=== PATIENT | female | born 1985 | race Caucasian/White ===

== ENCOUNTER 2022-08-28 11:15 | Outpatient (RCR) | payer OTHER, SELFPAY ==
--- NOTE | 2022-06-01 14:14 | PT.OIE ---
Current Diagnoses Urethrocele (06/01/22) Other complications of the puerperium, not elsewhere classified (06/01/22) Visit Care Team Role Provider Type Mary Mann MD Attending Provider Non-Staff Family Provider Primary Care Provider Referring Provider Specialty: Family Practice Address: [facility] [place], [address] Email: Physical Therapy Initial Evaluation PT-OP-A Visit Information Start: 05/29/22 18:13 Freq: Status: Active Protocol: Document 06/01/22 11:25 LRN (Rec: 06/01/22 12:39 LRN [id number]) Out-Patient Physical Therapy Visit Information Visit Information Visit Type Initial Evaluation Visit Start Time 11:25 Visit Stop Time 12:20 Total Visit Minutes 55 Visit Number 1 Evaluation Information Evaluation Date 06/01/22 Precautions Precautions None. PT-OP-B Current Condition Start: 05/29/22 18:13 Freq: Status: Active Protocol: Document 06/01/22 11:25 LRN (Rec: 06/01/22 12:39 LRN [id number]) Current Condition History of Current Condition Onset Date Childbirth of son 03/27/22. Current Complaints Bulge in vagina felt intermittently. History of Current Condition 3-4 wks post- pt reports feeling a bulge in the shower in her vaginal region. Went in for 6th week visit on 05/04, said she didn't see anything on pelvic exam, but with cough that she may have a slight anterior bulge. Got a squatty potty and if constipated has a bulge that she can feel, or when really dehydrated has a feeling of something falling out. Bulge with with cough. Feels a bulge in vagina and between vagina and rectum on the outside. Has stuck her finger in her vagina and has felt her bulge. Notices the heavy feeling and bulge at least 1x/ day. Had constipation during but no bulging and heaviness in vagina. Sometimes feels like a tightness in the urethra or clitoris (someting pulling on it), like when the catheter was removed. Prior Treatments and Tests None Future Testing and Treatments Planned None Developmental History Developmental History First , gave vaginal to a healthy boy (7# 11 ounces) on 03/27/22, boy. Had 1st degree tear anteriorly with no stitches. States the MD thought her tear had healed at her last check up. Has tenderness in the area. Stopped 3 weeks ago. Treatment Goals Patient/Caregiver Goals Pt goals: Return to Crossfit No bulging or heaviness feeling with coughing and when constipated and when walking. 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 Baseline Function- Recreation/Hobbies Crossfit workouts 2-3x/week and yoga 1x/wk. Current Functional Impairments (Reported) Functional Limitations- ADL's Not able to do Crossfit. Feels bulge with coughing and when constipated and when walking. Heavy feeling and bulge at least 1x/day. Functional Limitations- Work/School Return to work is planned after the new year. Functional Limitations- Recreation/ Resumed yoga. Hobbies Personal Factors Other Personal Factors That May Effect Mother of ~2 month old . Therapy/Recovery PT-OP-C Subjective Start: 05/29/22 18:13 Freq: Status: Active Protocol: Document 06/01/22 11:25 LRN (Rec: 06/01/22 12:39 LRN [id number]) Patient Questionnaires Pelvic Pain and Urgency/Frequency Patient Symptom Scale Pelvic Pain Score 4 OP-PT Pain Assessment Pain Assessment Grid Paper Pain Assessment Grid Completed Yes Location Urethra/Clitoris region Pain Location Details Urethra/Clitoris region Intensity 1 Scale Used Numeric (0 - 10) Description Tightness Frequency Intermittent Pain Duration Couple hours or all day. Initially was constant. Occurs 1-2x/week. PT-OP-I Pelvic Floor Start: 05/29/22 18:13 Freq: Status: Active Protocol: Document 06/01/22 11:25 LRN (Rec: 06/01/22 12:39 LRN [id number]) Pelvic Floor Assessment Urine Pelvic Floor Surgery No Urinary Symptoms Falling Out Feeling/Heavy Other Urinary Symptoms NO urinary leakage. Bowel Bowel Surgery No Bowel Symptoms Constipation Other Bowel Symptoms constipated 1x/week. Bowel Movement Frequency daily [place] Stool Chart Comments Bowels range 2-3 and with metamucil stool is type 6. When constipated type Pelvic Clock Pelvic Clock 6-9 Atrophy Pelvic Clock Other Tenderness at Pelvic Clock 6. Prolapse Cystocele Grade 2 Perineal Descent Resting Absent Bearing Present Contraction Ability Voluntary Contraction Moderate Manual Muscle Testing Left 2 Manual Muscle Testing Right 2 Manual Muscle Testing Anterior 2 Manual Muscle Testing Posterior 2 Muscle Endurance (Seconds) 8 Number of Quick Contractions In 10 10 Seconds Comments Pelvic Floor Comments Long Holds: Posterior PF, no lift felt, anteriorly bulge felt but lift noted wth contraction; therefore slightly weaker posterior than anterior PF. Endurance: weakens in contraction after ~ 8 secs. Quick Flicks: Weak on R side (5-6 of PF clock), no sphincter contraction felt in posterior PF. Externally: Tenderness of Perineal node and Superficial and deep transverse perineal ms. Tender at Ischiocavernosus near clitoris towards vagina region. PT-OP-J Posture/Palpation/Skin Start: 05/29/22 18:13 Freq: Status: Active Protocol: Document 06/01/22 11:25 LRN (Rec: 06/01/22 12:39 LRN [id number]) Posture Evaluation Position Standing Head/C-Spine Posture Forward Head L-Spine Posture Increased Lordosis Shoulder Posture (R) Elevated Pelvis Posture Anteriorly Tilted,(R) Iliac Crest Superior,(R) PSIS Inferior Knee Posture (L) Genu Varus,(R) Genu Varus Comments Posture Comments Mild Dowagers hump, straightened upper thoracic spine, belly button shifted R, valgus of elbows, R PSIS is posterior and deep. R Gluteal line is low. Notably developed gluteal and quadriceps muscles bilaterally . PT-OP-K Range of Motion Start: 05/29/22 18:13 Freq: Status: Active Protocol: Document 06/01/22 11:25 LRN (Rec: 06/01/22 12:39 LRN [id number]) Lumbar Spine Range of Motion Lumbar Spine Active Degrees Testing Position Standing Flexion 90 Extension 15 Lateral Flexion Left 10 Lateral Flexion Right 10 ROM Limitations Soft Tissue Tightness Comments Hip Flex: 90 deg's flexion with 50 deg's hip flexion. Hip Ext 15 deg's extension with 15 deg's hip extension. Hip Goniometric Range of Motion Hip Right Passive Testing Position Supine Straight Leg Raise 80 Internal Rotation 40 External Rotation 60 Left Passive Testing Position Supine Straight Leg Raise 75 Internal Rotation 30 External Rotation 60 PT-OP-M Strength Start: 05/29/22 18:13 Freq: Status: Active Protocol: Document 06/01/22 11:25 LRN (Rec: 11/21/22 12:39 LRN [id number]) Trunk Strength Trunk Manual Muscle Testing Core Stabilization Mild loss of core stability with MMT, most with L hip flexand R hip ext. Hip Strength Hip Manual Muscle Testing Right Extension (S1) 4+ Good+ Comments Generally 5/5 except as indicated above. Left Flexion (L2) 4+ Good+ Comments Generally 5/5 except as indicated above. PT-OP-Q Treatments Start: 05/29/22 18:13 Freq: Status: Active Protocol: Document 06/01/22 11:25 LRN (Rec: 06/01/22 12:39 LRN [id number]) Self-Care/Home Management Treatment Education Patient Education Home Exercise Program Other Education Discussed results of evaluation, goals, and plan of care (POC). Pt agreeable to goals and POC. Reviewed HEP: Kegels ex's for Quick Flicks, Long Holds. Pt educated in use of Bladder Diary and I/S in tracking for 1 week. Discussed use of 2 different diaries for tracking of bladder. Activities Self-Care/Home Management Activities I/S pt briefly in Bridging with PF contractions for Quick Flicks and Long Holds. Issued handout for HEP of Kegel ex's. PT-OP-T Assessment and Plan Start: 05/29/22 18:13 Freq: Status: Active Protocol: Document 06/01/22 11:25 LRN (Rec: 06/01/22 12:39 N [id number]) Physical Therapy Assessment Rehab Potential Rehabilitation Potential Excellent Evaluation Complexity Number of Personal Factors/Comorbidities 1-2 Number of Body Systems Impaired 4 or More Clinical Presentation at Evaluation Evolving Impairments Impairments Activity Tolerance,Pain, Posture,ROM,Soft Tissue Mobility,Strength Goals Four Impairment Tenderness at the External PF. Impairment Tenderness at Ischiocavernosus , Perineal node and Superficial/deep transverse perineal ms. Short Term Goal (STG) Elimate tenderness at the Ischiocavernosus region. STG Duration 07/17/21 Plastic Block Boiler Reliner Goal (LTG) Elimnate tenderness at the Perineal node and Superficial/ deep transverse perineal ms. LTG Duration 08/21/22 Three Impairment Decreased ability to ex due to cystocele. Short Term Goal (STG) Pt will be educated in proper breathing patterns for return to low level ex's at her gym. STG Duration 06/12/22 Plastic Block Boiler Reliner Goal (LTG) Return to Crossfit in a modified capacity. LTG Duration 08/21/22 Two Impairment Cystocele, grade 2. Impairment Heavy feeling and bulge at least 1x/day. Short Term Goal (STG) Pt will be able to have a bowel movement when constipated without onset of bulging or feeling of heaviness. STG Duration 07/17/21 [facility] Goal (LTG) No bulging or heaviness feeling with coughing and when walking. LTG Duration 08/21/22 One Impairment Pt lacks appropriate self care HEP Short Term Goal (STG) Pt will be educated in proper body mechanics and ADLs with proper breathing patterns to minimize the feeling of bulging in the vagina. STG Duration 06/12/22 [facility] Goal (LTG) Pt will be independent in a self care HEP of PF strengthening ex's to minimize cystocele onset. LTG Duration 08/21/22 Assessment Summary Assessment Pt is a 37 yo female . She presents with Grade 2 cystocele probably due to poor breathing mechanics with functional mobility, posturing and voiding mechanics. She appears to have weakness of her superficial PF muscles anteriorly > posteriorly and her deep PF muscles posterior> anteriorly. She has postural an hormonal changes, as well as mechanical changes at the hips (tight L>R hamstring and IR's) that contribute to her PF weakness. The pt will benefit from skilled physical therapy to address the previously stated dysfunctions and to promote changes to achieve the above stated goals . Physical Therapy Plan Frequency and Duration Frequency of Treatment 1x/Week Plan of Care Start Date 06/01/22 Plan of Care End Date 08/21/22 Therapeutic Interventions Therapeutic Interventions Home Exercise Program,Joint Mobilizations,Neuromuscular Re -education,Patient/Caregiver Education,Self-Care/Home Management,Soft Tissue Mobilization,Taping, Therapeutic Activities, Therapeutic Exercises Modalities Cold Pack/Ice Massage Next Visit Focus/Plan Next Note Type Treatment Note Next Visit Plan Assess Abdomen and Sacrum and treat as needed. Education: Proper breathing with voiding, Body mechanics & ADLs, transfers. HEP for: Tight L>R hamstring and L>R IR's. HEP for: Mild weakness of core, L hip flex & R hip ext. STM: Perineum at perineal node. Manual: Sacral balancing, abdomen.
--- NOTE | 2022-06-01 14:15 | PT.OPPOC ---
Physical, Occupational & Speech Therapy At [facility] Current Diagnoses Urethrocele (06/01/22) Other complications of the puerperium, not elsewhere classified (06/01/22) Visit Care Team Role Provider Type Mary Mann MD Attending Provider Non-Staff Family Provider Primary Care Provider Referring Provider Specialty: Family Practice Address: [address], [address] Email: Plan Of Care PT-OP-T Assessment and Plan Start: 05/29/22 18:13 Freq: Status: Active Protocol: Document 06/01/22 11:25 LRN (Rec: 06/01/22 12:39 LRN [id number]) Physical Therapy Assessment Rehab Potential Rehabilitation Potential Excellent Evaluation Complexity Number of Personal Factors/Comorbidities 1-2 Number of Body Systems Impaired 4 or More Clinical Presentation at Evaluation Evolving Impairments Impairments Activity Tolerance,Pain, Posture,ROM,Soft Tissue Mobility,Strength Goals Four Impairment Tenderness at the External PF. Impairment Tenderness at Ischiocavernosus , Perineal node and Superficial/deep transverse perineal ms. Short Term Goal (STG) Elimate tenderness at the Ischiocavernosus region. STG Duration 07/17/21 Senior Care Goal (LTG) Elimnate tenderness at the Perineal node and Superficial/ deep transverse perineal ms. LTG Duration 08/21/22 Three Impairment Decreased ability to ex due to cystocele. Short Term Goal (STG) Pt will be educated in proper breathing patterns for return to low level ex's at her gym. STG Duration 06/12/22 Senior Care Goal (LTG) Return to Crossfit in a modified capacity. LTG Duration 08/21/22 Two Impairment Cystocele, grade 2. Impairment Heavy feeling and bulge at least 1x/day. Short Term Goal (STG) Pt will be able to have a bowel movement when constipated without onset of bulging or feeling of heaviness. STG Duration 07/17/21 Veneer Drier Tailer Goal (LTG) No bulging or heaviness feeling with coughing and when walking. LTG Duration 08/21/22 One Impairment Pt lacks appropriate self care HEP Short Term Goal (STG) Pt will be educated in proper body mechanics and ADLs with proper breathing patterns to minimize the feeling of bulging in the vagina. STG Duration 06/12/22 Veneer Drier Tailer Goal (LTG) Pt will be independent in a self care HEP of PF strengthening ex's to minimize cystocele onset. LTG Duration 08/21/22 Assessment Summary Assessment Pt is a 37 yo female . She presents with Grade 2 cystocele probably due to poor breathing mechanics with functional mobility, posturing and voiding mechanics. She appears to have weakness of her superficial PF muscles anteriorly > posteriorly and her deep PF muscles posterior> anteriorly. She has postural an hormonal changes, as well as mechanical changes at the hips (tight L>R hamstring and IR's) that contribute to her PF weakness. The pt will benefit from skilled physical therapy to address the previously stated dysfunctions and to promote changes to achieve the above stated goals . Physical Therapy Plan Frequency and Duration Frequency of Treatment 1x/Week Plan of Care Start Date 06/01/22 Plan of Care End Date 08/21/22 Therapeutic Interventions Therapeutic Interventions Home Exercise Program,Joint Mobilizations,Neuromuscular Re -education,Patient/Caregiver Education,Self-Care/Home Management,Soft Tissue Mobilization,Taping, Therapeutic Activities, Therapeutic Exercises Modalities Cold Pack/Ice Massage Next Visit Focus/Plan Next Note Type Treatment Note Next Visit Plan Assess Abdomen and Sacrum and treat as needed. Education: Proper breathing with voiding, Body mechanics & ADLs, transfers. HEP for: Tight L>R hamstring and L>R IR's. HEP for: Mild weakness of core, L hip flex & R hip ext. STM: Perineum at perineal node. Manual: Sacral balancing, abdomen. Plan of Care Dates Plan of Care Start Date 06/01/22 Plan of Care End Date 08/21/22 Electronically Signed by: Maribel Lucas, PT 06/01/22 2192 If you are in agreement with this Plan of Care, please return a signed and dated copy. I have reviewed this Plan of Care and certify that the skilled therapy services above are required to meet the patient?s needs. Physician Signature Date Printed Name and Credentials Clinical Instructor Signature Printed Name and Credentials
--- NOTE | 2022-06-09 20:13 | PT.OTN ---
Current Diagnoses Urethrocele (06/09/22) Other complications of the puerperium, not elsewhere classified (06/09/22) Physical Therapy Treatment Note PT-OP-A Visit Information Start: 05/29/22 18:13 Freq: Status: Active Protocol: Document 06/09/22 09:50 LRN (Rec: 06/09/22 10:34 LRN [id number]) Out-Patient Physical Therapy Visit Information Visit Information Visit Type Treatment Note Visit Start Time 09:50 Visit Stop Time 10:28 Total Visit Minutes 38 Visit Number 2 Evaluation Information Evaluation Date 06/01/22 Precautions Precautions None. PT-OP-B Current Condition Start: 05/29/22 18:13 Freq: Status: Active Protocol: Document 06/01/22 11:25 LRN (Rec: 06/01/22 12:39 LRN [id number]) Current Condition History of Current Condition Onset Date Childbirth of son 03/27/22. Current Complaints Bulge in vagina felt intermittently. History of Current Condition 3-4 wks post- pt reports feeling a bulge in the shower in her vaginal region. Went in for 6th week visit on 05/04, said she didn't see anything on pelvic exam, but with cough that she may have a slight anterior bulge. Got a squatty potty and if constipated has a bulge that she can feel, or when really dehydrated has a feeling of something falling out. Bulge with with cough. Feels a bulge in vagina and between vagina and rectum on the outside. Has stuck her finger in her vagina and has felt her bulge. Notices the heavy feeling and bulge at least 1x/ day. Had constipation during but no bulging and heaviness in vagina. Sometimes feels like a tightness in the urethra or clitoris (someting pulling on it), like when the catheter was removed. Prior Treatments and Tests None Future Testing and Treatments Planned None Developmental History Developmental History First , gave vaginal to a healthy boy (7# 11 ounces) on 03/27/22, boy. Had 1st degree tear anteriorly with no stitches. States the MD thought her tear had healed at her last check up. Has tenderness in the area. Stopped 3 weeks ago. Treatment Goals Patient/Caregiver Goals Pt goals: Return to Crossfit No bulging or heaviness feeling with coughing and when constipated and when walking. 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 Baseline Function- Recreation/Hobbies Crossfit workouts 2-3x/week and yoga 1x/wk. Current Functional Impairments (Reported) Functional Limitations- ADL's Not able to do Crossfit. Feels bulge with coughing and when constipated and when walking. Heavy feeling and bulge at least 1x/day. Functional Limitations- Work/School Return to work is planned after the new year. Functional Limitations- Recreation/ Resumed yoga. Hobbies Personal Factors Other Personal Factors That May Effect Mother of ~2 month old . Therapy/Recovery PT-OP-C Subjective Start: 05/29/22 18:13 Freq: Status: Active Protocol: Document 06/09/22 09:50 LRN (Rec: 06/09/22 10:34 LRN [id number]) OP-PT Subjective Patient Comments Patient Comments Doing pretty good. PT-OP-I Pelvic Floor Start: 05/29/22 18:13 Freq: Status: Active Protocol: Document 06/01/22 11:25 LRN (Rec: 06/01/22 12:39 LRN [id number]) Pelvic Floor Assessment Urine Pelvic Floor Surgery No Urinary Symptoms Falling Out Feeling/Heavy Other Urinary Symptoms NO urinary leakage. Bowel Bowel Surgery No Bowel Symptoms Constipation Other Bowel Symptoms constipated 1x/week. Bowel Movement Frequency daily [place] Stool Chart Comments Bowels range 2-3 and with metamucil stool is type 6. When constipated type Pelvic Clock Pelvic Clock 6-9 Atrophy Pelvic Clock Other Tenderness at Pelvic Clock 6. Prolapse Cystocele Grade 2 Perineal Descent Resting Absent Bearing Present Contraction Ability Voluntary Contraction Moderate Manual Muscle Testing Left 2 Manual Muscle Testing Right 2 Manual Muscle Testing Anterior 2 Manual Muscle Testing Posterior 2 Muscle Endurance (Seconds) 8 Number of Quick Contractions In 10 10 Seconds Comments Pelvic Floor Comments Long Holds: Posterior PF, no lift felt, anteriorly bulge felt but lift noted wth contraction; therefore slightly weaker posterior than anterior PF. Endurance: weakens in contraction after ~ 8 secs. Quick Flicks: Weak on R side (5-6 of PF clock), no sphincter contraction felt in posterior PF. Externally: Tenderness of Perineal node and Superficial and deep transverse perineal ms. Tender at Ischiocavernosus near clitoris towards vagina region. PT-OP-J Posture/Palpation/Skin Start: 05/29/22 18:13 Freq: Status: Active Protocol: Document 06/01/22 11:25 LRN (Rec: 06/01/22 12:39 LRN [id number]) Posture Evaluation Position Standing Head/C-Spine Posture Forward Head L-Spine Posture Increased Lordosis Shoulder Posture (R) Elevated Pelvis Posture Anteriorly Tilted,(R) Iliac Crest Superior,(R) PSIS Inferior Knee Posture (L) Genu Varus,(R) Genu Varus Comments Posture Comments Mild Dowagers hump, straightened upper thoracic spine, belly button shifted R, valgus of elbows, R PSIS is posterior and deep. R Gluteal line is low. Notably developed gluteal and quadriceps muscles bilaterally . PT-OP-K Range of Motion Start: 05/29/22 18:13 Freq: Status: Active Protocol: Document 06/01/22 11:25 LRN (Rec: 06/01/22 12:39 LRN [id number]) Lumbar Spine Range of Motion Lumbar Spine Active Degrees Testing Position Standing Flexion 90 Extension 15 Lateral Flexion Left 10 Lateral Flexion Right 10 ROM Limitations Soft Tissue Tightness Comments Hip Flex: 90 deg's flexion with 50 deg's hip flexion. Hip Ext 15 deg's extension with 15 deg's hip extension. Hip Goniometric Range of Motion Hip Right Passive Testing Position Supine Straight Leg Raise 80 Internal Rotation 40 External Rotation 60 Left Passive Testing Position Supine Straight Leg Raise 75 Internal Rotation 30 External Rotation 60 PT-OP-M Strength Start: 05/29/22 18:13 Freq: Status: Active Protocol: Document 06/01/22 11:25 LRN (Rec: 06/01/22 12:39 LRN [id number]) Trunk Strength Trunk Manual Muscle Testing Core Stabilization Mild loss of core stability with MMT, most with L hip flexand R hip ext. Hip Strength Hip Manual Muscle Testing Right Extension (S1) 4+ Good+ Comments Generally 5/5 except as indicated above. Left Flexion (L2) 4+ Good+ Comments Generally 5/5 except as indicated above. PT-OP-Q Treatments Start: 05/29/22 18:13 Freq: Status: Active Protocol: Document 06/09/22 09:50 LRN (Rec: 06/09/22 10:34 LRN [id number]) Therapeutic Exercises Supine Exercises DB/Roll in/outs Supine Exercise Name LE Roll in/outs with DB (tried with PF contraction) Reps/Minutes 5x training, 10x self Comments Extra time for coordination of ex, but pt not able to do w/ PF contraction. Deep Breathing Supine Exercise Name Deep Breathing - Diaphragmatic Breathing Reps/Minutes 1' ILU massage Supine Exercise Name ILU massage -self massage. Reps/Minutes 5' Comments Pt shown how to do by self Self-Care/Home Management Treatment Education Patient Education Home Exercise Program Other Education Bladder diary review and discussed: diet, bowel massage , techniques to ease BM, & diaphragmatic breathing for PF relaxation and voiding. Discussed at length recommendations for appropriate changes in diet ( ex-increasing fiber, increasing fluids of non- caffeinated drinks, increasing fluids, hydration needs for her weight, etc...). 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 Educated pt in [place] Stool Chart to monitor BM's. Activities Self-Care/Home Management Activities Issued and reviewed handout for diaphragmatic breathing for pt to do on toilet for BMs , bowel program, self care ILU massage, and bristol stool chart. PT-OP-T Assessment and Plan Start: 05/29/22 18:13 Freq: Status: Active Protocol: Document 06/09/22 09:50 LRN (Rec: 06/09/22 10:34 LRN [id number]) Physical Therapy Assessment Goals Four Impairment Tenderness at the External PF. Impairment Tenderness at Ischiocavernosus , Perineal node and Superficial/deep transverse perineal ms. Short Term Goal (STG) Elimate tenderness at the Ischiocavernosus region. STG Duration 07/17/21 Halfway Goal (LTG) Elimnate tenderness at the Perineal node and Superficial/ deep transverse perineal ms. LTG Duration 08/21/22 Three Impairment Decreased ability to ex due to cystocele. Short Term Goal (STG) Pt will be educated in proper breathing patterns for return to low level ex's at her gym. 06/09/22: Briefly discussed use of breathing with her gym exercises. STG Duration 06/12/22 initiated education 06/09/22 Halfway Goal (LTG) Return to Crossfit in a modified capacity. LTG Duration 08/21/22 Two Impairment Cystocele, grade 2. Impairment Heavy feeling and bulge at least 1x/day. Short Term Goal (STG) Pt will be able to have a bowel movement when constipated without onset of bulging or feeling of heaviness. STG Duration 07/17/21 Thermocouple Tester Goal (LTG) No bulging or heaviness feeling with coughing and when walking. LTG Duration 08/21/22 One Impairment Pt lacks appropriate self care HEP Short Term Goal (STG) Pt will be educated in proper body mechanics and ADLs with proper breathing patterns to minimize the feeling of bulging in the vagina. 06/09/22: Discussed use of proper breathing to minimize valsalva maneuver when having a BM, and effects on PF during mechanics of breathing, and when doing PF strengthening ex 's. STG Duration 06/12/22 progressing Halfway Goal (LTG) Pt will be independent in a self care HEP of PF strengthening ex's to minimize cystocele onset. 06/09/22: I/S in HEP: LE roll in/outs with deep breathing. LTG Duration 08/21/22 progressing Assessment Summary Assessment Pt with grade 2 cystocele as noted in supine. After review of bladder diary it is apparent that the pt is not drinking enough fluids for her weight and she is drinking too much caffeinated drinks. Pt also lacks fiber in diet. She needs further training of use of proper breath work with exercise. Ex's needed to improve areas of weakness of her superficial PF muscles anteriorly > posteriorly and her deep PF muscles posterior> anteriorly. Physical Therapy Plan Frequency and Duration Frequency of Treatment 1x/Week Plan of Care Start Date 06/01/22 Plan of Care End Date 08/21/22 Next Visit Focus/Plan Next Note Type Treatment Note Next Visit Plan Assess Abdomen and Sacrum and treat as needed. Education: Review and possible practice of proper breathing with voiding, Education: Proper breathing with Body mechanics, ADLs, & transfers. HEP for: Tight L>R hamstring and L>R IR's. HEP for: Mild weakness of core, L hip flex & R hip ext, strengthen superficial PF muscles anteriorly > posteriorly and her deep PF muscles posterior> anteriorly. STM: Perineum at perineal node. Manual: Sacral balancing, abdomen.
--- NOTE | 2022-06-15 18:14 | PT.OTN ---
Current Diagnoses Urethrocele (06/15/22) Other complications of the puerperium, not elsewhere classified (06/15/22) Physical Therapy Treatment Note PT-OP-A Visit Information Start: 05/29/22 18:13 Freq: Status: Active Protocol: Document 06/15/22 09:57 LRN (Rec: 06/15/22 10:41 LRN [id number]) Out-Patient Physical Therapy Visit Information Visit Information Visit Type Treatment Note Visit Start Time 09:57 Visit Stop Time 10:38 Total Visit Minutes 41 Visit Number 2 Evaluation Information Evaluation Date 06/01/22 Precautions Precautions None. PT-OP-B Current Condition Start: 05/29/22 18:13 Freq: Status: Active Protocol: Document 06/01/22 11:25 LRN (Rec: 06/01/22 12:39 LRN [id number]) Current Condition History of Current Condition Onset Date Childbirth of son 03/27/22. Current Complaints Bulge in vagina felt intermittently. History of Current Condition 3-4 wks post- pt reports feeling a bulge in the shower in her vaginal region. Went in for 6th week visit on 05/04, said she didn't see anything on pelvic exam, but with cough that she may have a slight anterior bulge. Got a squatty potty and if constipated has a bulge that she can feel, or when really dehydrated has a feeling of something falling out. Bulge with with cough. Feels a bulge in vagina and between vagina and rectum on the outside. Has stuck her finger in her vagina and has felt her bulge. Notices the heavy feeling and bulge at least 1x/ day. Had constipation during but no bulging and heaviness in vagina. Sometimes feels like a tightness in the urethra or clitoris (someting pulling on it), like when the catheter was removed. Prior Treatments and Tests None Future Testing and Treatments Planned None Developmental History Developmental History First , gave vaginal to a healthy boy (7# 11 ounces) on 03/27/22, boy. Had 1st degree tear anteriorly with no stitches. States the MD thought her tear had healed at her last check up. Has tenderness in the area. Stopped 3 weeks ago. Treatment Goals Patient/Caregiver Goals Pt goals: Return to Crossfit No bulging or heaviness feeling with coughing and when constipated and when walking. 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 Baseline Function- Recreation/Hobbies Crossfit workouts 2-3x/week and yoga 1x/wk. Current Functional Impairments (Reported) Functional Limitations- ADL's Not able to do Crossfit. Feels bulge with coughing and when constipated and when walking. Heavy feeling and bulge at least 1x/day. Functional Limitations- Work/School Return to work is planned after the new year. Functional Limitations- Recreation/ Resumed yoga. Hobbies Personal Factors Other Personal Factors That May Effect Mother of ~2 month old . Therapy/Recovery PT-OP-C Subjective Start: 05/29/22 18:13 Freq: Status: Active Protocol: Document 06/15/22 09:57 LRN (Rec: 06/15/22 10:41 LRN [id number]) OP-PT Subjective Patient Comments Patient Comments States bowels are hit/miss. Breathing with BM has helped with elimination, even with type 1, 2 BM's. PT-OP-I Pelvic Floor Start: 05/29/22 18:13 Freq: Status: Active Protocol: Document 06/01/22 11:25 LRN (Rec: 06/01/22 12:39 LRN [id number]) Pelvic Floor Assessment Urine Pelvic Floor Surgery No Urinary Symptoms Falling Out Feeling/Heavy Other Urinary Symptoms NO urinary leakage. Bowel Bowel Surgery No Bowel Symptoms Constipation Other Bowel Symptoms constipated 1x/week. Bowel Movement Frequency daily [place] Stool Chart Comments Bowels range 2-3 and with metamucil stool is type 6. When constipated type Pelvic Clock Pelvic Clock 6-9 Atrophy Pelvic Clock Other Tenderness at Pelvic Clock 6. Prolapse Cystocele Grade 2 Perineal Descent Resting Absent Bearing Present Contraction Ability Voluntary Contraction Moderate Manual Muscle Testing Left 2 Manual Muscle Testing Right 2 Manual Muscle Testing Anterior 2 Manual Muscle Testing Posterior 2 Muscle Endurance (Seconds) 8 Number of Quick Contractions In 10 10 Seconds Comments Pelvic Floor Comments Long Holds: Posterior PF, no lift felt, anteriorly bulge felt but lift noted wth contraction; therefore slightly weaker posterior than anterior PF. Endurance: weakens in contraction after ~ 8 secs. Quick Flicks: Weak on R side (5-6 of PF clock), no sphincter contraction felt in posterior PF. Externally: Tenderness of Perineal node and Superficial and deep transverse perineal ms. Tender at Ischiocavernosus near clitoris towards vagina region. PT-OP-J Posture/Palpation/Skin Start: 05/29/22 18:13 Freq: Status: Active Protocol: Document 06/15/22 09:57 LRN (Rec: 06/15/22 17:57 LRN [id number]) Palpation Assessment Location Abdomen Palpation Location DR Palpation Details 2 above umbilicus - Closed 1 above umbilicus - 2.5 finger widths. 1 below umbilicus - 2.5 shallow finger widths. 2 below umbilicus - 1.5 shallow finger width. 3 below umbilicus - Closed. PT-OP-K Range of Motion Start: 05/29/22 18:13 Freq: Status: Active Protocol: Document 06/01/22 11:25 LRN (Rec: 06/01/22 12:39 LRN [id number]) Lumbar Spine Range of Motion Lumbar Spine Active Degrees Testing Position Standing Flexion 90 Extension 15 Lateral Flexion Left 10 Lateral Flexion Right 10 ROM Limitations Soft Tissue Tightness Comments Hip Flex: 90 deg's flexion with 50 deg's hip flexion. Hip Ext 15 deg's extension with 15 deg's hip extension. Hip Goniometric Range of Motion Hip Right Passive Testing Position Supine Straight Leg Raise 80 Internal Rotation 40 External Rotation 60 Left Passive Testing Position Supine Straight Leg Raise 75 Internal Rotation 30 External Rotation 60 PT-OP-M Strength Start: 05/29/22 18:13 Freq: Status: Active Protocol: Document 06/01/22 11:25 LRN (Rec: 06/01/22 12:39 LRN [id number]) Trunk Strength Trunk Manual Muscle Testing Core Stabilization Mild loss of core stability with MMT, most with L hip flexand R hip ext. Hip Strength Hip Manual Muscle Testing Right Extension (S1) 4+ Good+ Comments Generally 5/5 except as indicated above. Left Flexion (L2) 4+ Good+ Comments Generally 5/5 except as indicated above. PT-OP-Q Treatments Start: 05/29/22 18:13 Freq: Status: Active Protocol: Document 06/15/22 09:57 LRN (Rec: 06/15/22 10:41 LRN [id number]) Therapeutic Exercises Supine Exercises Lateral Hip stretch Supine Exercise Name Lateral Hip stretch Side bilateral Comments L tighter than R. Piriformis stretch Side bilateral Comments L tighter than R. Hamstring/LE neural stretch Supine Exercise Name Hamstring/LE neural stretch Side bilateral Comments L tighter than R. Kegels/breath after transfers Supine Exercise Name Kegels/breathing after transfer Equipment Used Wedge Reps/Minutes 2-3 x Comments Cuing for coordination of ex Transfers w/Kegel/breath Supine Exercise Name Sit<>side<>sup, Sit<>stand, Reps/Minutes 2x each Comments Cuing for coordination of ex Manual Therapy Treatment Other Other Manual Treatments DR assessement: 2 above umbilicus - Closed 1 above umbilicus - 2.5 finger widths. 1 below umbilicus - 2.5 shallow finger widths. 2 below umbilicus - 1.5 shallow finger width. 3 below umbilicus - Closed. Self-Care/Home Management Treatment Education Patient Education Body Mechanics,Home Exercise Program Other Education Education: Proper breathing with Body mechanics, ADLs, & transfers. Transfer training with use of Sheet for DR protection. Activities Self-Care/Home Management Activities Issued & reviewed HEP: LE neural/hamstring stretch, Piriformis and lateral hip stretch, and TA tightening with use of support around trunk. PT-OP-T Assessment and Plan Start: 05/29/22 18:13 Freq: Status: Active Protocol: Document 06/15/22 09:57 LRN (Rec: 06/15/22 10:41 LRN [id number]) Physical Therapy Assessment Goals Four Impairment Tenderness at the External PF. Impairment Tenderness at Ischiocavernosus , Perineal node and Superficial/deep transverse perineal ms. Short Term Goal (STG) Elimate tenderness at the Ischiocavernosus region. STG Duration 07/17/21 Longterm Goal (LTG) Elimnate tenderness at the Perineal node and Superficial/ deep transverse perineal ms. LTG Duration 08/21/22 Three Impairment Decreased ability to ex due to cystocele. Short Term Goal (STG) Pt will be educated in proper breathing patterns for return to low level ex's at her gym. 06/09/22: Briefly discussed use of breathing with her gym exercises. STG Duration 06/12/22 initiated education 06/09/22 Wave Guide Assembler Goal (LTG) Return to Crossfit in a modified capacity. LTG Duration 08/21/22 Two Impairment Cystocele, grade 2. Impairment Heavy feeling and bulge at least 1x/day. Short Term Goal (STG) Pt will be able to have a bowel movement when constipated without onset of bulging or feeling of heaviness. 06/15/22: Pt reports less strain with use of breathing with BM's. STG Duration 07/17/21 progressing 06/15/22. Wave Guide Assembler Goal (LTG) No bulging or heaviness feeling with coughing and when walking. LTG Duration 08/21/22 One Impairment Pt lacks appropriate self care HEP Short Term Goal (STG) Pt will be educated in proper body mechanics and ADLs with proper breathing patterns to minimize the feeling of bulging in the vagina. 06/09/22: Discussed use of proper breathing to minimize valsalva maneuver when having a BM, and effects on PF during mechanics of breathing, and when doing PF strengthening ex 's. STG Duration 06/12/22 progressing Longterm Goal (LTG) Pt will be independent in a self care HEP of PF strengthening ex's to minimize cystocele onset. 06/09/22: I/S in HEP: LE roll in/outs with deep breathing. 06/15/22: HEP: TA w/DR support, LE neural/hamstring and L>R Piriformis/Lateral Hip stretch. LTG Duration 08/21/22 progressed 06/15/22 Assessment Summary Assessment Pt with grade 2 cystocele. Abdomen has mild DR around umbilicus (2 above is closed, 1 above 2.5 finger widths; 1 below is 2.5 shallow finger widths, 2 below is 1.5 shallow finger widths, 3 below is closed). Good awareness of PF lift when on wedge for Kegels w/roll in/ outs. Pt appears to have a good understanding of LE neural and Piriformis stretch with noted tightness L>R. Physical Therapy Plan Frequency and Duration Frequency of Treatment 1x/Week Plan of Care Start Date 06/01/22 Plan of Care End Date 08/21/22 Next Visit Focus/Plan Next Note Type Treatment Note Next Visit Plan Assess Sacrum and treat as needed (balancing). Review HEP issued for: Tight L >R hamstring and L>R IR's. Education: Review and possible practice of proper breathing with voiding, and discuss proper breathing patterns for return to low level ex's at her gym. HEP for: Mild weakness of core, L hip flex & R hip ext, strengthen superficial PF muscles anteriorly > posteriorly and her deep PF muscles posterior> anteriorly. STM: Perineum at perineal node. Core stab to protect DR. Manual: Sacral balancing, abdomen.
--- NOTE | 2022-06-22 13:45 | PT.OTN ---
Current Diagnoses Urethrocele (06/22/22) Other complications of the puerperium, not elsewhere classified (06/22/22) Physical Therapy Treatment Note PT-OP-A Visit Information Start: 05/29/22 18:13 Freq: Status: Active Protocol: Document 06/22/22 13:03 LRN (Rec: 06/22/22 13:45 LRN [id number]) Out-Patient Physical Therapy Visit Information Visit Information Visit Type Treatment Note Visit Start Time 13:03 Visit Stop Time 13:41 Total Visit Minutes 38 Visit Number 3 PT-OP-B Current Condition Start: 05/29/22 18:13 Freq: Status: Active Protocol: Document 06/01/22 11:25 LRN (Rec: 06/01/22 12:39 LRN [id number]) Current Condition History of Current Condition Onset Date Childbirth of son 03/27/22. Current Complaints Bulge in vagina felt intermittently. History of Current Condition 3-4 wks post- pt reports feeling a bulge in the shower in her vaginal region. Went in for 6th week visit on 05/04, MD said she didn't see anything on pelvic exam, but with cough that she may have a slight anterior bulge. Got a squatty potty and if constipated has a bulge that she can feel, or when really dehydrated has a feeling of something falling out. Bulge with with cough. Feels a bulge in vagina and between vagina and rectum on the outside. Has stuck her finger in her vagina and has felt her bulge. Notices the heavy feeling and bulge at least 1x/ day. Had constipation during but no bulging and heaviness in vagina. Sometimes feels like a tightness in the urethra or clitoris (someting pulling on it), like when the catheter was removed. Prior Treatments and Tests None Future Testing and Treatments Planned None Developmental History Developmental History First , gave vaginal to a healthy boy (7# 11 ounces) on 03/27/22, boy. Had 1st degree tear anteriorly with no stitches. States the MD thought her tear had healed at her last check up. Has tenderness in the area. Stopped 3 weeks ago. Treatment Goals Patient/Caregiver Goals Pt goals: Return to Crossfit No bulging or heaviness feeling with coughing and when constipated and when walking. 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 Baseline Function- Recreation/Hobbies Crossfit workouts 2-3x/week and yoga 1x/wk. Current Functional Impairments (Reported) Functional Limitations- ADL's Not able to do Crossfit. Feels bulge with coughing and when constipated and when walking. Heavy feeling and bulge at least 1x/day. Functional Limitations- Work/School Return to work is planned after the new year. Functional Limitations- Recreation/ Resumed yoga. Hobbies Personal Factors Other Personal Factors That May Effect Mother of ~2 month old . Therapy/Recovery PT-OP-C Subjective Start: 05/29/22 18:13 Freq: Status: Active Protocol: Document 06/22/22 13:03 LRN (Rec: 06/22/22 13:45 LRN [id number]) OP-PT Subjective Patient Comments Patient Comments About the same. Bowel have been irregular. Trying to drink more fluids. Has been doing proper breathing with transfers and using towel to keep DR closed with transfers. Last few days have felt the heavy bulge, but probably related to bowels. PT-OP-I Pelvic Floor Start: 05/29/22 18:13 Freq: Status: Active Protocol: Document 06/01/22 11:25 LRN (Rec: 06/01/22 12:39 LRN [id number]) Pelvic Floor Assessment Urine Pelvic Floor Surgery No Urinary Symptoms Falling Out Feeling/Heavy Other Urinary Symptoms NO urinary leakage. Bowel Bowel Surgery No Bowel Symptoms Constipation Other Bowel Symptoms constipated 1x/week. Bowel Movement Frequency daily [place] Stool Chart Comments Bowels range 2-3 and with metamucil stool is type 6. When constipated type Pelvic Clock Pelvic Clock 6-9 Atrophy Pelvic Clock Other Tenderness at Pelvic Clock 6. Prolapse Cystocele Grade 2 Perineal Descent Resting Absent Bearing Present Contraction Ability Voluntary Contraction Moderate Manual Muscle Testing Left 2 Manual Muscle Testing Right 2 Manual Muscle Testing Anterior 2 Manual Muscle Testing Posterior 2 Muscle Endurance (Seconds) 8 Number of Quick Contractions In 10 10 Seconds Comments Pelvic Floor Comments Long Holds: Posterior PF, no lift felt, anteriorly bulge felt but lift noted wth contraction; therefore slightly weaker posterior than anterior PF. Endurance: weakens in contraction after ~ 8 secs. Quick Flicks: Weak on R side (5-6 of PF clock), no sphincter contraction felt in posterior PF. Externally: Tenderness of Perineal node and Superficial and deep transverse perineal ms. Tender at Ischiocavernosus near clitoris towards vagina region. PT-OP-J Posture/Palpation/Skin Start: 05/29/22 18:13 Freq: Status: Active Protocol: Document 06/15/22 09:57 LRN (Rec: 06/15/22 17:57 LRN [id number]) Palpation Assessment Location Abdomen Palpation Location DR Palpation Details 2 above umbilicus - Closed 1 above umbilicus - 2.5 finger widths. 1 below umbilicus - 2.5 shallow finger widths. 2 below umbilicus - 1.5 shallow finger width. 3 below umbilicus - Closed. PT-OP-K Range of Motion Start: 05/29/22 18:13 Freq: Status: Active Protocol: Document 06/01/22 11:25 LRN (Rec: 06/01/22 12:39 LRN [id number]) Lumbar Spine Range of Motion Lumbar Spine Active Degrees Testing Position Standing Flexion 90 Extension 15 Lateral Flexion Left 10 Lateral Flexion Right 10 ROM Limitations Soft Tissue Tightness Comments Hip Flex: 90 deg's flexion with 50 deg's hip flexion. Hip Ext 15 deg's extension with 15 deg's hip extension. Hip Goniometric Range of Motion Hip Right Passive Testing Position Supine Straight Leg Raise 80 Internal Rotation 40 External Rotation 60 Left Passive Testing Position Supine Straight Leg Raise 75 Internal Rotation 30 External Rotation 60 PT-OP-M Strength Start: 05/29/22 18:13 Freq: Status: Active Protocol: Document 06/01/22 11:25 LRN (Rec: 06/01/22 12:39 LRN [id number]) Trunk Strength Trunk Manual Muscle Testing Core Stabilization Mild loss of core stability with MMT, most with L hip flexand R hip ext. Hip Strength Hip Manual Muscle Testing Right Extension (S1) 4+ Good+ Comments Generally 5/5 except as indicated above. Left Flexion (L2) 4+ Good+ Comments Generally 5/5 except as indicated above. PT-OP-Q Treatments Start: 05/29/22 18:13 Freq: Status: Active Protocol: Document 06/22/22 13:03 LRN (Rec: 06/22/22 13:45 LRN [id number]) Therapeutic Exercises Supine Exercises Bridging Supine Exercise Name TA/Bridging Kegel on Wedge Supine Exercise Name Kegels coordinated with breathing Equipment Used Wedge Reps/Minutes 10x Quick, 6x Long hold alternating with no hold Comments V cuing needed to coordinate exercise. Lateral Hip stretch Supine Exercise Name Lateral Hip stretch, L>R Side bilateral Reps/Minutes 60 SH, 2x L, 1x R Comments L tighter than R. Piriformis stretch Supine Exercise Name Piriformis stretch, L>R Side bilateral Reps/Minutes 60 SH, 2x L, 1x R. Comments L tighter than R. Hamstring/LE neural stretch Supine Exercise Name Hamstring/LE neural stretch, L >R Side bilateral Comments L tighter than R. DB/Roll in/outs Supine Exercise Name LE Roll in/outs with DB/PF contraction Reps/Minutes 10x Sidelying Exercises TA tightening Sidelying Exercise Name TA tightening Side bilateral Reps/Minutes 10 SH x 10 Self-Care/Home Management Treatment Education Patient Education Home Exercise Program Other Education Discussed and educated pt in proper breathing w/Kegel during exercise and discussed at length different ex's that the pt will be doing in her gym with return to exercise, and methods for movement to decrease prolapse with exercise. Discussed effects of gravity and ex's that place more stress on PF (jumping, running , Plank type ex's). PT-OP-T Assessment and Plan Start: 05/29/22 18:13 Freq: Status: Active Protocol: Document 06/22/22 13:03 LRN (Rec: 06/22/22 13:45 LRN [id number]) Physical Therapy Assessment Goals Four Impairment Tenderness at the External PF. Impairment Tenderness at Ischiocavernosus , Perineal node and Superficial/deep transverse perineal ms. Short Term Goal (STG) Elimate tenderness at the Ischiocavernosus region. STG Duration 07/17/21 Half-Way Goal (LTG) Elimnate tenderness at the Perineal node and Superficial/ deep transverse perineal ms. LTG Duration 08/21/22 Three Impairment Decreased ability to ex due to cystocele. Short Term Goal (STG) Pt will be educated in proper breathing patterns for return to low level ex's at her gym. 06/09/22: Briefly discussed use of breathing with her gym exercises. STG Duration 06/12/22 (06/22/22: MET GOAL) Half-Way Goal (LTG) Return to Crossfit in a modified capacity. LTG Duration 08/21/22 Two Impairment Cystocele, grade 2. Impairment Heavy feeling and bulge at least 1x/day. Short Term Goal (STG) Pt will be able to have a bowel movement when constipated without onset of bulging or feeling of heaviness. 06/15/22: Pt reports less strain with use of breathing with BM's. STG Duration 07/17/21 progressing 06/15/22. Link Cutter Goal (LTG) No bulging or heaviness feeling with coughing and when walking. 06/22/22: Bulge felt when more constipated. LTG Duration 08/21/22 progressing One Impairment Pt lacks appropriate self care HEP Short Term Goal (STG) Pt will be educated in proper body mechanics and ADLs with proper breathing patterns to minimize the feeling of bulging in the vagina. 06/09/22: Discussed use of proper breathing to minimize valsalva maneuver when having a BM, and effects on PF during mechanics of breathing, and when doing PF strengthening ex 's. 06/22/22: See self care for pt education today. STG Duration 06/12/22 (06/22/22: MET GOAL) Half-Way Goal (LTG) Pt will be independent in a self care HEP of PF strengthening ex's to minimize cystocele onset. 06/09/22: I/S in HEP: LE roll in/outs with deep breathing. 06/15/22: HEP: TA w/DR support, LE neural/hamstring and L>R Piriformis/Lateral Hip stretch. LTG Duration 08/21/22 progressed 06/15/22 Assessment Summary Assessment Pt appears to have a good recall of previously issued HEP. STM prior to TA tightening was helpful to get TA contraction. Pt bulging in perineum is felt mainly when she is constipated and has not drank enough fluids. Pt is using ground flax seed for more fiber in diet. Pt has not yet discussed use of magnesium in diet to help with GI motility. Pt able to perform LE roll in/outs with DB and PF contraction. Physical Therapy Plan Frequency and Duration Frequency of Treatment 1x/Week Plan of Care Start Date 06/01/22 Plan of Care End Date 08/21/22 Next Visit Focus/Plan Next Note Type Treatment Note Next Visit Plan Assess Sacrum and treat as needed (balancing). STM: Trunk rotators, Perineum at perineal node. HEP for: Mild weakness of core, L hip flex & R hip ext, strengthen superficial PF muscles anteriorly > posteriorly and her deep PF muscles posterior> anteriorly. Ex: Core stab to protect DR, and L hip flex & R hip ext, strengthen superficial PF muscles anteriorly > posteriorly and her deep PF muscles posterior> anteriorly. Manual: Sacral balancing, abdomen.
--- NOTE | 2022-07-17 12:34 | PT.OTN ---
Current Diagnoses Urethrocele (07/17/22) Other complications of the puerperium, not elsewhere classified (07/17/22) Physical Therapy Treatment Note PT-OP-A Visit Information Start: 05/29/22 18:13 Freq: Status: Active Protocol: Document 07/17/22 11:26 LRN (Rec: 07/17/22 12:33 LRN [id number]) Out-Patient Physical Therapy Visit Information Visit Information Visit Type Treatment Note Visit Start Time 11:26 Visit Stop Time 12:08 Total Visit Minutes 42 Visit Number 4 Evaluation Information Evaluation Date 06/01/22 Precautions Precautions None. PT-OP-B Current Condition Start: 05/29/22 18:13 Freq: Status: Active Protocol: Document 06/01/22 11:25 LRN (Rec: 06/01/22 12:39 LRN [id number]) Current Condition History of Current Condition Onset Date Childbirth of son 03/27/22. Current Complaints Bulge in vagina felt intermittently. History of Current Condition 3-4 wks post- pt reports feeling a bulge in the shower in her vaginal region. Went in for 6th week visit on 05/04, said she didn't see anything on pelvic exam, but with cough that she may have a slight anterior bulge. Got a squatty potty and if constipated has a bulge that she can feel, or when really dehydrated has a feeling of something falling out. Bulge with with cough. Feels a bulge in vagina and between vagina and rectum on the outside. Has stuck her finger in her vagina and has felt her bulge. Notices the heavy feeling and bulge at least 1x/ day. Had constipation during but no bulging and heaviness in vagina. Sometimes feels like a tightness in the urethra or clitoris (someting pulling on it), like when the catheter was removed. Prior Treatments and Tests None Future Testing and Treatments Planned None Developmental History Developmental History First , gave vaginal to a healthy boy (7# 11 ounces) on 03/27/22, boy. Had 1st degree tear anteriorly with no stitches. States the MD thought her tear had healed at her last check up. Has tenderness in the area. Stopped 3 weeks ago. Treatment Goals Patient/Caregiver Goals Pt goals: Return to Crossfit No bulging or heaviness feeling with coughing and when constipated and when walking. 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 Current Functional Impairments (Reported) Functional Limitations- ADL's Not able to do Crossfit. Feels bulge with coughing and when constipated and when walking. Heavy feeling and bulge at least 1x/day. Functional Limitations- Work/School Return to work is planned after the new year. Functional Limitations- Recreation/ Resumed yoga. Hobbies Personal Factors Other Personal Factors That May Effect Mother of ~2 month old . Therapy/Recovery PT-OP-C Subjective Start: 05/29/22 18:13 Freq: Status: Active Protocol: Document 07/17/22 11:26 LRN (Rec: 07/17/22 12:33 LRN [id number]) OP-PT Subjective Patient Comments Patient Comments Having more bowel movements; therefore less constipation. Not pushing with bowel movements. Patient Reported Progress Improving PT-OP-I Pelvic Floor Start: 05/29/22 18:13 Freq: Status: Active Protocol: Document 06/01/22 11:25 LRN (Rec: 06/01/22 12:39 LRN [id number]) Pelvic Floor Assessment Urine Pelvic Floor Surgery No Urinary Symptoms Falling Out Feeling/Heavy Other Urinary Symptoms NO urinary leakage. Bowel Bowel Surgery No Bowel Symptoms Constipation Other Bowel Symptoms constipated 1x/week. Bowel Movement Frequency daily [place] Stool Chart Comments Bowels range 2-3 and with metamucil stool is type 6. When constipated type Pelvic Clock Pelvic Clock 6-9 Atrophy Pelvic Clock Other Tenderness at Pelvic Clock 6. Prolapse Cystocele Grade 2 Perineal Descent Resting Absent Bearing Present Contraction Ability Voluntary Contraction Moderate Manual Muscle Testing Left 2 Manual Muscle Testing Right 2 Manual Muscle Testing Anterior 2 Manual Muscle Testing Posterior 2 Muscle Endurance (Seconds) 8 Number of Quick Contractions In 10 10 Seconds Comments Pelvic Floor Comments Long Holds: Posterior PF, no lift felt, anteriorly bulge felt but lift noted wth contraction; therefore slightly weaker posterior than anterior PF. Endurance: weakens in contraction after ~ 8 secs. Quick Flicks: Weak on R side (5-6 of PF clock), no sphincter contraction felt in posterior PF. Externally: Tenderness of Perineal node and Superficial and deep transverse perineal ms. Tender at Ischiocavernosus near clitoris towards vagina region. PT-OP-J Posture/Palpation/Skin Start: 05/29/22 18:13 Freq: Status: Active Protocol: Document 06/15/22 09:57 LRN (Rec: 06/15/22 17:57 LRN [id number]) Palpation Assessment Location Abdomen Palpation Location DR Palpation Details 2 above umbilicus - Closed 1 above umbilicus - 2.5 finger widths. 1 below umbilicus - 2.5 shallow finger widths. 2 below umbilicus - 1.5 shallow finger width. 3 below umbilicus - Closed. PT-OP-K Range of Motion Start: 05/29/22 18:13 Freq: Status: Active Protocol: Document 06/01/22 11:25 LRN (Rec: 06/01/22 12:39 LRN [id number]) Lumbar Spine Range of Motion Lumbar Spine Active Degrees Testing Position Standing Flexion 90 Extension 15 Lateral Flexion Left 10 Lateral Flexion Right 10 ROM Limitations Soft Tissue Tightness Comments Hip Flex: 90 deg's flexion with 50 deg's hip flexion. Hip Ext 15 deg's extension with 15 deg's hip extension. Hip Goniometric Range of Motion Hip Right Passive Testing Position Supine Straight Leg Raise 80 Internal Rotation 40 External Rotation 60 Left Passive Testing Position Supine Straight Leg Raise 75 Internal Rotation 30 External Rotation 60 PT-OP-M Strength Start: 05/29/22 18:13 Freq: Status: Active Protocol: Document 06/01/22 11:25 LRN (Rec: 06/01/22 12:39 LRN [id number]) Trunk Strength Trunk Manual Muscle Testing Core Stabilization Mild loss of core stability with MMT, most with L hip flexand R hip ext. Hip Strength Hip Manual Muscle Testing Right Extension (S1) 4+ Good+ Comments Generally 5/5 except as indicated above. Left Flexion (L2) 4+ Good+ Comments Generally 5/5 except as indicated above. PT-OP-Q Treatments Start: 05/29/22 18:13 Freq: Status: Active Protocol: Document 07/17/22 11:26 LRN (Rec: 07/17/22 12:33 LRN [id number]) Therapeutic Exercises Supine Exercises Bridging Supine Exercise Name Bridging with PF contraction Comments Cuing to not breath hold Kegel on Wedge Supine Exercise Name TA/Kegels Equipment Used Wedge Reps/Minutes 3' Comments V cuing needed to coordinate exercise. DB/Roll in/outs Supine Exercise Name Kegel/LE Roll in/outs with DB/ PF contraction Reps/Minutes 10x Manual Therapy Treatment Manual Techniques Sacral Balancing Type MFR Body Location Sacrum, Ischial Tub, Pube Body Position Prone & Supine Reps/Duration 34' Comments R Sacral Sulcus: Inferior [place] & [place] L Ischial Tub, Lateral Sacral border: PA L Sacral border: Shear to R R Pube: Caudal to Cranial. 6 pt Sacral balancing PT-OP-T Assessment and Plan Start: 05/29/22 18:13 Freq: Status: Active Protocol: Document 07/17/22 11:26 LRN (Rec: 07/17/22 12:33 LRN [id number]) Physical Therapy Assessment Goals Four Impairment Tenderness at the External PF. Impairment Tenderness at Ischiocavernosus , Perineal node and Superficial/deep transverse perineal ms. Short Term Goal (STG) Elimate tenderness at the Ischiocavernosus region. STG Duration 07/17/21 Correction Goal (LTG) Elimnate tenderness at the Perineal node and Superficial/ deep transverse perineal ms. LTG Duration 08/21/22 Three Impairment Decreased ability to ex due to cystocele. Short Term Goal (STG) Pt will be educated in proper breathing patterns for return to low level ex's at her gym. 06/09/22: Briefly discussed use of breathing with her gym exercises. STG Duration 06/12/22 (06/22/22: MET GOAL) Correction Goal (LTG) Return to Crossfit in a modified capacity. LTG Duration 08/21/22 Two Impairment Cystocele, grade 2. Impairment Heavy feeling and bulge at least 1x/day. Short Term Goal (STG) Pt will be able to have a bowel movement when constipated without onset of bulging or feeling of heaviness. 06/15/22: Pt reports less strain with use of breathing with BM's. STG Duration 07/17/21 progressing 06/15/22. Elementary School Teacher'S Aide Goal (LTG) No bulging or heaviness feeling with coughing and when walking. 06/22/22: Bulge felt when more constipated. LTG Duration 08/21/22 progressing One Impairment Pt lacks appropriate self care HEP Short Term Goal (STG) Pt will be educated in proper body mechanics and ADLs with proper breathing patterns to minimize the feeling of bulging in the vagina. 06/09/22: Discussed use of proper breathing to minimize valsalva maneuver when having a BM, and effects on PF during mechanics of breathing, and when doing PF strengthening ex 's. 06/22/22: See self care for pt education today. STG Duration 06/12/22 (06/22/22: MET GOAL) [employer] Teacher'S Aide Goal (LTG) Pt will be independent in a self care HEP of PF strengthening ex's to minimize cystocele onset. 06/09/22: I/S in HEP: LE roll in/outs with deep breathing. 06/15/22: HEP: TA w/DR support, LE neural/hamstring and L>R Piriformis/Lateral Hip stretch. LTG Duration 08/21/22 progressed 06/15/22 Assessment Summary Assessment Able to correct and balance Sacrum (Tightness with R sulcus inferior glide & PA; tight Sacral shear to the R; tight L sacral border/Ischium for PA; Tight R Pube with cephal-caudal mvmt). Level of constipation is decreased. Physical Therapy Plan Frequency and Duration Frequency of Treatment 1x/Week Plan of Care Start Date 06/01/22 Plan of Care End Date 08/21/22 Next Visit Focus/Plan Next Note Type Treatment Note Next Visit Plan STM: Perineum at perineal node , Trunk rotators, & abdomen. HEP for: Mild weakness of core, L hip flex & R hip ext, strengthen superficial PF muscles anteriorly > posteriorly and her deep PF muscles posterior> anteriorly. Ex: Core stab to protect DR, and L hip flex & R hip ext, strengthen superficial PF muscles (on wedge) anteriorly > posteriorly and her deep PF muscles posterior> anteriorly.
--- NOTE | 2022-07-24 12:28 | PT.OTN ---
Current Diagnoses Urethrocele (07/24/22) Other complications of the puerperium, not elsewhere classified (07/24/22) Physical Therapy Treatment Note PT-OP-A Visit Information Start: 05/29/22 18:13 Freq: Status: Active Protocol: Document 07/24/22 11:18 LRN (Rec: 07/24/22 12:27 LRN [id number]) Out-Patient Physical Therapy Visit Information Visit Information Visit Type Treatment Note Visit Start Time 11:18 Visit Stop Time 12:01 Total Visit Minutes 43 Visit Number 5 Evaluation Information Evaluation Date 06/01/22 Precautions Precautions None. PT-OP-B Current Condition Start: 05/29/22 18:13 Freq: Status: Active Protocol: Document 06/01/22 11:25 LRN (Rec: 06/01/22 12:39 LRN [id number]) Current Condition History of Current Condition Onset Date Childbirth of son 03/27/22. Current Complaints Bulge in vagina felt intermittently. History of Current Condition 3-4 wks post- pt reports feeling a bulge in the shower in her vaginal region. Went in for 6th week visit on 05/04, said she didn't see anything on pelvic exam, but with cough that she may have a slight anterior bulge. Got a squatty potty and if constipated has a bulge that she can feel, or when really dehydrated has a feeling of something falling out. Bulge with with cough. Feels a bulge in vagina and between vagina and rectum on the outside. Has stuck her finger in her vagina and has felt her bulge. Notices the heavy feeling and bulge at least 1x/ day. Had constipation during but no bulging and heaviness in vagina. Sometimes feels like a tightness in the urethra or clitoris (someting pulling on it), like when the catheter was removed. Prior Treatments and Tests None Future Testing and Treatments Planned None Developmental History Developmental History First , gave vaginal to a healthy boy (7# 11 ounces) on 03/27/22, boy. Had 1st degree tear anteriorly with no stitches. States the MD thought her tear had healed at her last check up. Has tenderness in the area. Stopped 3 weeks ago. Treatment Goals Patient/Caregiver Goals Pt goals: Return to Crossfit No bulging or heaviness feeling with coughing and when constipated and when walking. 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 Baseline Function- Recreation/Hobbies Crossfit workouts 2-3x/week and yoga 1x/wk. Current Functional Impairments (Reported) Functional Limitations- ADL's Not able to do Crossfit. Feels bulge with coughing and when constipated and when walking. Heavy feeling and bulge at least 1x/day. Functional Limitations- Work/School Return to work is planned after the new year. Functional Limitations- Recreation/ Resumed yoga. Hobbies Personal Factors Other Personal Factors That May Effect Mother of ~2 month old . Therapy/Recovery PT-OP-C Subjective Start: 05/29/22 18:13 Freq: Status: Active Protocol: Document 07/24/22 11:18 LRN (Rec: 07/24/22 12:27 LRN [id number]) OP-PT Subjective Patient Comments Patient Comments Drinking more and added vegs/ fruit to diet. PT-OP-I Pelvic Floor Start: 05/29/22 18:13 Freq: Status: Active Protocol: Document 06/01/22 11:25 LRN (Rec: 06/01/22 12:39 LRN [id number]) Pelvic Floor Assessment Urine Pelvic Floor Surgery No Urinary Symptoms Falling Out Feeling/Heavy Other Urinary Symptoms NO urinary leakage. Bowel Bowel Surgery No Bowel Symptoms Constipation Other Bowel Symptoms constipated 1x/week. Bowel Movement Frequency daily [place] Stool Chart Comments Bowels range 2-3 and with metamucil stool is type 6. When constipated type Pelvic Clock Pelvic Clock 6-9 Atrophy Pelvic Clock Other Tenderness at Pelvic Clock 6. Prolapse Cystocele Grade 2 Perineal Descent Resting Absent Bearing Present Contraction Ability Voluntary Contraction Moderate Manual Muscle Testing Left 2 Manual Muscle Testing Right 2 Manual Muscle Testing Anterior 2 Manual Muscle Testing Posterior 2 Muscle Endurance (Seconds) 8 Number of Quick Contractions In 10 10 Seconds Comments Pelvic Floor Comments Long Holds: Posterior PF, no lift felt, anteriorly bulge felt but lift noted wth contraction; therefore slightly weaker posterior than anterior PF. Endurance: weakens in contraction after ~ 8 secs. Quick Flicks: Weak on R side (5-6 of PF clock), no sphincter contraction felt in posterior PF. Externally: Tenderness of Perineal node and Superficial and deep transverse perineal ms. Tender at Ischiocavernosus near clitoris towards vagina region. PT-OP-J Posture/Palpation/Skin Start: 05/29/22 18:13 Freq: Status: Active Protocol: Document 06/15/22 09:57 LRN (Rec: 06/15/22 17:57 LRN [id number]) Palpation Assessment Location Abdomen Palpation Location DR Palpation Details 2 above umbilicus - Closed 1 above umbilicus - 2.5 finger widths. 1 below umbilicus - 2.5 shallow finger widths. 2 below umbilicus - 1.5 shallow finger width. 3 below umbilicus - Closed. PT-OP-K Range of Motion Start: 05/29/22 18:13 Freq: Status: Active Protocol: Document 06/01/22 11:25 LRN (Rec: 06/01/22 12:39 LRN [id number]) Lumbar Spine Range of Motion Lumbar Spine Active Degrees Testing Position Standing Flexion 90 Extension 15 Lateral Flexion Left 10 Lateral Flexion Right 10 ROM Limitations Soft Tissue Tightness Comments Hip Flex: 90 deg's flexion with 50 deg's hip flexion. Hip Ext 15 deg's extension with 15 deg's hip extension. Hip Goniometric Range of Motion Hip Right Passive Testing Position Supine Straight Leg Raise 80 Internal Rotation 40 External Rotation 60 Left Passive Testing Position Supine Straight Leg Raise 75 Internal Rotation 30 External Rotation 60 PT-OP-M Strength Start: 05/29/22 18:13 Freq: Status: Active Protocol: Document 06/01/22 11:25 LRN (Rec: 06/01/22 12:39 LRN [id number]) Trunk Strength Trunk Manual Muscle Testing Core Stabilization Mild loss of core stability with MMT, most with L hip flexand R hip ext. Hip Strength Hip Manual Muscle Testing Right Extension (S1) 4+ Good+ Comments Generally 5/5 except as indicated above. Left Flexion (L2) 4+ Good+ Comments Generally 5/5 except as indicated above. PT-OP-Q Treatments Start: 05/29/22 18:13 Freq: Status: Active Protocol: Document 07/24/22 11:18 LRN (Rec: 07/24/22 12:27 LRN [id number]) Therapeutic Exercises Supine Exercises Kegel/DB/Roll in/out/TA Supine Exercise Name Kegel/DB/Roll in/out - 1st Kegel w/exhale, then w/both inhale/exhale. Side bilateral Equipment Used wedge, ball, L2 TB. Reps/Minutes 15' Comments time taken to get coordination of ex before adding 1 ea resist directio Manual Therapy Treatment Soft Tissue Mobilization Perineal Node Body Location Perineal node: (in/ouside & outside mob) Mobilization Type Myofascial Release,Sustained Pressure Body Position Hooklying Self-Care/Home Management Treatment Education Patient Education Home Exercise Program Other Education Educated pt to use Ice pack to perineum if tender from STM. Activities Self-Care/Home Management Activities Issued HEP: LE Roll in/out. Pt increase Happy Baby Pose stretch to daily. PT-OP-T Assessment and Plan Start: 05/29/22 18:13 Freq: Status: Active Protocol: Document 07/24/22 11:18 LRN (Rec: 07/24/22 12:27 LRN [id number]) Physical Therapy Assessment Goals Four Impairment Tenderness at the External PF. Impairment Tenderness at Ischiocavernosus , Perineal node and Superficial/deep transverse perineal ms. Short Term Goal (STG) Elimate tenderness at the Ischiocavernosus region. STG Duration 07/17/21 Fdc Goal (LTG) Elimnate tenderness at the Perineal node and Superficial/ deep transverse perineal ms. LTG Duration 08/21/22 Three Impairment Decreased ability to ex due to cystocele. Short Term Goal (STG) Pt will be educated in proper breathing patterns for return to low level ex's at her gym. 06/09/22: Briefly discussed use of breathing with her gym exercises. STG Duration 06/12/22 (06/22/22: MET GOAL) Fdc Goal (LTG) Return to Crossfit in a modified capacity. LTG Duration 08/21/22 Two Impairment Cystocele, grade 2. Impairment Heavy feeling and bulge at least 1x/day. Short Term Goal (STG) Pt will be able to have a bowel movement when constipated without onset of bulging or feeling of heaviness. 06/15/22: Pt reports less strain with use of breathing with BM's. 07/24/22: Notes heaviness during menstrual cycle. STG Duration 07/17/21 progressing 07/24/22. Interior Wall Assembler Goal (LTG) No bulging or heaviness feeling with coughing and when walking. 06/22/22: Bulge felt when more constipated. LTG Duration 08/21/22 progressing One Impairment Pt lacks appropriate self care HEP Short Term Goal (STG) Pt will be educated in proper body mechanics and ADLs with proper breathing patterns to minimize the feeling of bulging in the vagina. 06/09/22: Discussed use of proper breathing to minimize valsalva maneuver when having a BM, and effects on PF during mechanics of breathing, and when doing PF strengthening ex 's. 06/22/22: See self care for pt education today. STG Duration 06/12/22 (06/22/22: MET GOAL) Fdc Goal (LTG) Pt will be independent in a self care HEP of PF strengthening ex's to minimize cystocele onset. 06/09/22: I/S in HEP: LE roll in/outs with deep breathing. 06/15/22: HEP: TA w/DR support, LE neural/hamstring and L>R Piriformis/Lateral Hip stretch. 07/24/22: HEP: LE roll in/out w/PF contraction f/b 1 rep rest. LTG Duration 08/21/22 progressed 07/24/22 Assessment Summary Assessment Sacrum balanced. PF tightness on R side (7-6 O'Clock externally), at R transverse perineum and at perineal node. Tender external perineal node (no tenderness internally ). Physical Therapy Plan Frequency and Duration Frequency of Treatment 1x/Week Plan of Care Start Date 06/01/22 Plan of Care End Date 08/21/22 Next Visit Focus/Plan Next Note Type Treatment Note Next Visit Plan Assess response to perineal node MFR. Assess tenderness at Ischiocavernosus and Superficial/deep transverse perineal ms. Cont: Perineum STM at perineal node, STM: Trunk rotators, abdomen, MRF: Ischiocavernosus and Superficial/deep transverse perineal ms. HEP: Strengthen: Core (Mild weakness), L hip flex & R hip ext. Strengthen Superficial PF muscles anteriorly > posteriorly and Deep PF muscles posterior> anteriorly. Ex (same as HEP): Core stab to protect DR, and L hip flex & R hip ext, strengthen superficial PF muscles (on wedge) anteriorly > posteriorly and her deep PF muscles posterior> anteriorly.
--- NOTE | 2022-07-31 12:36 | PT.OTN ---
Current Diagnoses Urethrocele (07/31/22) Other complications of the puerperium, not elsewhere classified (07/31/22) Physical Therapy Treatment Note PT-OP-A Visit Information Start: 05/29/22 18:13 Freq: Status: Active Protocol: Document 07/31/22 11:21 LRN (Rec: 07/31/22 12:22 LRN [id number]) Out-Patient Physical Therapy Visit Information Visit Information Visit Type Treatment Note Visit Start Time 11:21 Visit Stop Time 11:59 Total Visit Minutes 38 Visit Number 6 Evaluation Information Evaluation Date 06/01/22 Precautions Precautions None. PT-OP-B Current Condition Start: 05/29/22 18:13 Freq: Status: Active Protocol: Document 06/01/22 11:25 LRN (Rec: 06/01/22 12:39 LRN [id number]) Current Condition History of Current Condition Onset Date Childbirth of son 03/27/22. Current Complaints Bulge in vagina felt intermittently. History of Current Condition 3-4 wks post- pt reports feeling a bulge in the shower in her vaginal region. Went in for 6th week visit on 05/04, said she didn't see anything on pelvic exam, but with cough that she may have a slight anterior bulge. Got a squatty potty and if constipated has a bulge that she can feel, or when really dehydrated has a feeling of something falling out. Bulge with with cough. Feels a bulge in vagina and between vagina and rectum on the outside. Has stuck her finger in her vagina and has felt her bulge. Notices the heavy feeling and bulge at least 1x/ day. Had constipation during but no bulging and heaviness in vagina. Sometimes feels like a tightness in the urethra or clitoris (someting pulling on it), like when the catheter was removed. Prior Treatments and Tests None Future Testing and Treatments Planned None Developmental History Developmental History First , gave vaginal to a healthy boy (7# 11 ounces) on 03/27/22, boy. Had 1st degree tear anteriorly with no stitches. States the MD thought her tear had healed at her last check up. Has tenderness in the area. Stopped 3 weeks ago. Treatment Goals Patient/Caregiver Goals Pt goals: Return to Crossfit No bulging or heaviness feeling with coughing and when constipated and when walking. 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 Baseline Function- Recreation/Hobbies Crossfit workouts 2-3x/week and yoga 1x/wk. Current Functional Impairments (Reported) Functional Limitations- ADL's Not able to do Crossfit. Feels bulge with coughing and when constipated and when walking. Heavy feeling and bulge at least 1x/day. Functional Limitations- Work/School Return to work is planned after the new year. Functional Limitations- Recreation/ Resumed yoga. Hobbies Personal Factors Other Personal Factors That May Effect Mother of ~2 month old . Therapy/Recovery PT-OP-C Subjective Start: 05/29/22 18:13 Freq: Status: Active Protocol: Document 07/31/22 11:21 LRN (Rec: 07/31/22 12:22 LRN [id number]) OP-PT Subjective Patient Comments Patient Comments PF ms felt used, but not sore after last treatment. PT-OP-I Pelvic Floor Start: 05/29/22 18:13 Freq: Status: Active Protocol: Document 06/01/22 11:25 LRN (Rec: 06/01/22 12:39 LRN [id number]) Pelvic Floor Assessment Urine Pelvic Floor Surgery No Urinary Symptoms Falling Out Feeling/Heavy Other Urinary Symptoms NO urinary leakage. Bowel Bowel Surgery No Bowel Symptoms Constipation Other Bowel Symptoms constipated 1x/week. Bowel Movement Frequency daily [place] Stool Chart Comments Bowels range 2-3 and with metamucil stool is type 6. When constipated type Pelvic Clock Pelvic Clock 6-9 Atrophy Pelvic Clock Other Tenderness at Pelvic Clock 6. Prolapse Cystocele Grade 2 Perineal Descent Resting Absent Bearing Present Contraction Ability Voluntary Contraction Moderate Manual Muscle Testing Left 2 Manual Muscle Testing Right 2 Manual Muscle Testing Anterior 2 Manual Muscle Testing Posterior 2 Muscle Endurance (Seconds) 8 Number of Quick Contractions In 10 10 Seconds Comments Pelvic Floor Comments Long Holds: Posterior PF, no lift felt, anteriorly bulge felt but lift noted wth contraction; therefore slightly weaker posterior than anterior PF. Endurance: weakens in contraction after ~ 8 secs. Quick Flicks: Weak on R side (5-6 of PF clock), no sphincter contraction felt in posterior PF. Externally: Tenderness of Perineal node and Superficial and deep transverse perineal ms. Tender at Ischiocavernosus near clitoris towards vagina region. PT-OP-J Posture/Palpation/Skin Start: 05/29/22 18:13 Freq: Status: Active Protocol: Document 06/15/22 09:57 LRN (Rec: 06/15/22 17:57 LRN [id number]) Palpation Assessment Location Abdomen Palpation Location DR Palpation Details 2 above umbilicus - Closed 1 above umbilicus - 2.5 finger widths. 1 below umbilicus - 2.5 shallow finger widths. 2 below umbilicus - 1.5 shallow finger width. 3 below umbilicus - Closed. PT-OP-K Range of Motion Start: 05/29/22 18:13 Freq: Status: Active Protocol: Document 06/01/22 11:25 LRN (Rec: 06/01/22 12:39 LRN [id number]) Lumbar Spine Range of Motion Lumbar Spine Active Degrees Testing Position Standing Flexion 90 Extension 15 Lateral Flexion Left 10 Lateral Flexion Right 10 ROM Limitations Soft Tissue Tightness Comments Hip Flex: 90 deg's flexion with 50 deg's hip flexion. Hip Ext 15 deg's extension with 15 deg's hip extension. Hip Goniometric Range of Motion Hip Right Passive Testing Position Supine Straight Leg Raise 80 Internal Rotation 40 External Rotation 60 Left Passive Testing Position Supine Straight Leg Raise 75 Internal Rotation 30 External Rotation 60 PT-OP-M Strength Start: 05/29/22 18:13 Freq: Status: Active Protocol: Document 06/01/22 11:25 LRN (Rec: 06/01/22 12:39 LRN [id number]) Trunk Strength Trunk Manual Muscle Testing Core Stabilization Mild loss of core stability with MMT, most with L hip flexand R hip ext. Hip Strength Hip Manual Muscle Testing Right Extension (S1) 4+ Good+ Comments Generally 5/5 except as indicated above. Left Flexion (L2) 4+ Good+ Comments Generally 5/5 except as indicated above. PT-OP-Q Treatments Start: 05/29/22 18:13 Freq: Status: Active Protocol: Document 07/31/22 11:21 LRN (Rec: 07/31/22 12:29 LRN [id number]) Manual Therapy Treatment Soft Tissue Mobilization Abdomen Body Location Cephalad lift of abdomen, Distraction and rotation uterus/bladder region Mobilization Type Myofascial Release Comments L rot bladder region with upper area stabilized and tissue distraction of area. Trunk Rotators Body Location Leonard Trunk Rotators Mobilization Type Myofascial Release,Strumming Intensity/Depth Moderate Body Position Hooklying Transverse Perineum Body Location Superficial/deep transverse perineal ms, L>R Mobilization Type Myofascial Release,Sustained Pressure Body Position Hooklying Comments Focus on L side Perineal Node Body Location Perineal node: (in/ouside & outside mob) Mobilization Type Myofascial Release,Sustained Pressure Body Position Hooklying PT-OP-T Assessment and Plan Start: 05/29/22 18:13 Freq: Status: Active Protocol: Document 07/31/22 11:21 LRN (Rec: 07/31/22 12:22 LRN [id number]) Physical Therapy Assessment Goals Four Impairment Tenderness at the External PF. Impairment Tenderness at Ischiocavernosus , Perineal node and Superficial/deep transverse perineal ms. Short Term Goal (STG) Elimate tenderness at the Ischiocavernosus region. STG Duration 07/17/21 Button And Buckle Maker Goal (LTG) Elimnate tenderness at the Perineal node and Superficial/ deep transverse perineal ms. 07/31/22: Lessening of tenderness. LTG Duration 08/21/22 progressing Three Impairment Decreased ability to ex due to cystocele. Short Term Goal (STG) Pt will be educated in proper breathing patterns for return to low level ex's at her gym. 06/09/22: Briefly discussed use of breathing with her gym exercises. STG Duration 06/12/22 (06/22/22: MET GOAL) Fdc Goal (LTG) Return to Crossfit in a modified capacity. LTG Duration 08/21/22 Two Impairment Cystocele, grade 2. Impairment Heavy feeling and bulge at least 1x/day. Short Term Goal (STG) Pt will be able to have a bowel movement when constipated without onset of bulging or feeling of heaviness. 06/15/22: Pt reports less strain with use of breathing with BM's. 07/24/22: Notes heaviness during menstrual cycle. 07/31/22: No bulging/heaviness with constipation when off menstrual cycle. STG Duration 07/17/21 (07/31/22: MET GOAL). Fdc Goal (LTG) No bulging or heaviness feeling with coughing and when walking. 06/22/22: Bulge felt when more constipated. LTG Duration 08/21/22 progressing One Impairment Pt lacks appropriate self care HEP Short Term Goal (STG) Pt will be educated in proper body mechanics and ADLs with proper breathing patterns to minimize the feeling of bulging in the vagina. 06/09/22: Discussed use of proper breathing to minimize valsalva maneuver when having a BM, and effects on PF during mechanics of breathing, and when doing PF strengthening ex 's. 06/22/22: See self care for pt education today. STG Duration 06/12/22 (06/22/22: MET GOAL) Fdc Goal (LTG) Pt will be independent in a self care HEP of PF strengthening ex's to minimize cystocele onset. 06/09/22: I/S in HEP: LE roll in/outs with deep breathing. 06/15/22: HEP: TA w/DR support, LE neural/hamstring and L>R Piriformis/Lateral Hip stretch. 07/24/22: HEP: LE roll in/out w/PF contraction f/b 1 rep rest. LTG Duration 08/21/22 progressed 07/24/22 Assessment Summary Assessment Decreasing pain and softening of tissue at perineal node and Superficial/deep transverse perineum. Pt tender at L transverse perineum. Pt is not on her menstrual cycle, and not having a feeling of falling out; therefore feeling of falling out may now be more associated to her menstrual cycle. Physical Therapy Plan Frequency and Duration Frequency of Treatment 1x/Week Plan of Care Start Date 06/01/22 Plan of Care End Date 08/21/22 Next Visit Focus/Plan Next Note Type Treatment Note Next Visit Plan Discuss POC for ongoing therapy. Assess tenderness at Ischiocavernosus. Assess response to cont'd perineal node MFR and trunk rotators. Assess progress towards goals 2 & 4. Cont: if needed, perineum STM at perineal node/L transverse perineum, Start: Progression towards return to cross fit wtih PF & core strengthening, (lifting education) STM: Trunk rotators, abdomen, MRF: Ischiocavernosus and Superficial/deep transverse perineal ms. Ex (same as HEP): Core stab to protect DR, and L hip flex & R hip ext, strengthen superficial PF muscles (on wedge) anteriorly > posteriorly and her deep PF muscles posterior> anteriorly. HEP: Strengthen: Core (Mild weakness), L hip flex & R hip ext. Strengthen Superficial PF muscles anteriorly > posteriorly and Deep PF muscles posterior> anteriorly.
--- NOTE | 2022-08-07 12:35 | PT.OTN ---
Current Diagnoses Urethrocele (08/07/22) Other complications of the puerperium, not elsewhere classified (08/07/22) Physical Therapy Treatment Note PT-OP-A Visit Information Start: 05/29/22 18:13 Freq: Status: Active Protocol: Document 08/07/22 11:19 LRN (Rec: 08/07/22 12:31 LRN [id number]) Out-Patient Physical Therapy Visit Information Visit Information Visit Type Treatment Note Visit Start Time 11:20 Visit Stop Time 12:00 Total Visit Minutes 40 Visit Number 7 Evaluation Information Evaluation Date 06/01/22 Precautions Precautions None. PT-OP-B Current Condition Start: 05/29/22 18:13 Freq: Status: Active Protocol: Document 06/01/22 11:25 LRN (Rec: 06/01/22 12:39 LRN [id number]) Current Condition History of Current Condition Onset Date Childbirth of son 03/27/22. Current Complaints Bulge in vagina felt intermittently. History of Current Condition 3-4 wks post- pt reports feeling a bulge in the shower in her vaginal region. Went in for 6th week visit on 05/04, said she didn't see anything on pelvic exam, but with cough that she may have a slight anterior bulge. Got a squatty potty and if constipated has a bulge that she can feel, or when really dehydrated has a feeling of something falling out. Bulge with with cough. Feels a bulge in vagina and between vagina and rectum on the outside. Has stuck her finger in her vagina and has felt her bulge. Notices the heavy feeling and bulge at least 1x/ day. Had constipation during but no bulging and heaviness in vagina. Sometimes feels like a tightness in the urethra or clitoris (someting pulling on it), like when the catheter was removed. Prior Treatments and Tests None Future Testing and Treatments Planned None Developmental History Developmental History First , gave vaginal to a healthy boy (7# 11 ounces) on 03/27/22, boy. Had 1st degree tear anteriorly with no stitches. States the MD thought her tear had healed at her last check up. Has tenderness in the area. Stopped 3 weeks ago. Treatment Goals Patient/Caregiver Goals Pt goals: Return to Crossfit No bulging or heaviness feeling with coughing and when constipated and when walking. Prior Functional Status Baseline Function- ADL's Independent Baseline Function- Mobility Independent Baseline Function- Work/School FT in [employer] for [employer] in [place]. Baseline Function- Recreation/Hobbies Crossfit workouts 2-3x/week and yoga 1x/wk. Current Functional Impairments (Reported) Functional Limitations- ADL's Not able to do Crossfit. Feels bulge with coughing and when constipated and when walking. Heavy feeling and bulge at least 1x/day. Functional Limitations- Work/School Return to work is planned after the new year. Functional Limitations- Recreation/ Resumed yoga. Hobbies Personal Factors Other Personal Factors That May Effect Mother of ~2 month old . Therapy/Recovery PT-OP-C Subjective Start: 05/29/22 18:13 Freq: Status: Active Protocol: Document 08/07/22 11:19 LRN (Rec: 08/07/22 12:31 LRN [id number]) OP-PT Subjective Patient Comments Patient Comments 4 months post and 2.5 months after stopping . Having some feeling of bulging and heaviness (notices it 5% or less) noticies it a few days before period, but not day to day, sometimes during exercise (certain stretches). 50% of time can have BM without feeling of bulging and related somewhat to constipation. Yoga every week. Crossfit workout 1-2x/week with dumbells, push/press, not jumping (does step ups), squatting to box (not going down all the way), stretching with hip bands. PT-OP-I Pelvic Floor Start: 05/29/22 18:13 Freq: Status: Active Protocol: Document 06/01/22 11:25 LRN (Rec: 06/01/22 12:39 LRN [id number]) Pelvic Floor Assessment Urine Pelvic Floor Surgery No Urinary Symptoms Falling Out Feeling/Heavy Other Urinary Symptoms NO urinary leakage. Bowel Bowel Surgery No Bowel Symptoms Constipation Other Bowel Symptoms constipated 1x/week. Bowel Movement Frequency daily [place] Stool Chart Comments Bowels range 2-3 and with metamucil stool is type 6. When constipated type Pelvic Clock Pelvic Clock 6-9 Atrophy Pelvic Clock Other Tenderness at Pelvic Clock 6. Prolapse Cystocele Grade 2 Perineal Descent Resting Absent Bearing Present Contraction Ability Voluntary Contraction Moderate Manual Muscle Testing Left 2 Manual Muscle Testing Right 2 Manual Muscle Testing Anterior 2 Manual Muscle Testing Posterior 2 Muscle Endurance (Seconds) 8 Number of Quick Contractions In 10 10 Seconds Comments Pelvic Floor Comments Long Holds: Posterior PF, no lift felt, anteriorly bulge felt but lift noted wth contraction; therefore slightly weaker posterior than anterior PF. Endurance: weakens in contraction after ~ 8 secs. Quick Flicks: Weak on R side (5-6 of PF clock), no sphincter contraction felt in posterior PF. Externally: Tenderness of Perineal node and Superficial and deep transverse perineal ms. Tender at Ischiocavernosus near clitoris towards vagina region. PT-OP-J Posture/Palpation/Skin Start: 05/29/22 18:13 Freq: Status: Active Protocol: Document 06/15/22 09:57 LRN (Rec: 06/15/22 17:57 LRN [id number]) Palpation Assessment Location Abdomen Palpation Location DR Palpation Details 2 above umbilicus - Closed 1 above umbilicus - 2.5 finger widths. 1 below umbilicus - 2.5 shallow finger widths. 2 below umbilicus - 1.5 shallow finger width. 3 below umbilicus - Closed. PT-OP-K Range of Motion Start: 05/29/22 18:13 Freq: Status: Active Protocol: Document 06/01/22 11:25 LRN (Rec: 06/01/22 12:39 LRN [id number]) Lumbar Spine Range of Motion Lumbar Spine Active Degrees Testing Position Standing Flexion 90 Extension 15 Lateral Flexion Left 10 Lateral Flexion Right 10 ROM Limitations Soft Tissue Tightness Comments Hip Flex: 90 deg's flexion with 50 deg's hip flexion. Hip Ext 15 deg's extension with 15 deg's hip extension. Hip Goniometric Range of Motion Hip Right Passive Testing Position Supine Straight Leg Raise 80 Internal Rotation 40 External Rotation 60 Left Passive Testing Position Supine Straight Leg Raise 75 Internal Rotation 30 External Rotation 60 PT-OP-M Strength Start: 05/29/22 18:13 Freq: Status: Active Protocol: Document 06/01/22 11:25 LRN (Rec: 06/01/22 12:39 LRN [id number]) Trunk Strength Trunk Manual Muscle Testing Core Stabilization Mild loss of core stability with MMT, most with L hip flexand R hip ext. Hip Strength Hip Manual Muscle Testing Right Extension (S1) 4+ Good+ Comments Generally 5/5 except as indicated above. Left Flexion (L2) 4+ Good+ Comments Generally 5/5 except as indicated above. PT-OP-Q Treatments Start: 05/29/22 18:13 Freq: Status: Active Protocol: Document 08/07/22 11:19 LRN (Rec: 08/07/22 12:31 LRN [id number]) Therapeutic Exercises Supine Exercises Diagonal Abdominal core Supine Exercise Name Feet on wall, hands together, rotating with TA/breathing/PF Reps/Minutes 3' Comments Cuing for TA to prevent doming Happy Baby Pose Supine Exercise Name Happy Baby Pose Reps/Minutes 2' Kegel/DB/Roll in/out/TA Supine Exercise Name Feet on wall, knees flexed ~ 40 deg's, roll in/outs w/feet> w/o feet on wall Side bilateral Reps/Minutes 7' Comments Extra time to determine knee position for max kimmy resistance w/o ab bulge Manual Therapy Treatment Soft Tissue Mobilization Ischiocavernosus Body Location R Ischiocavernosus Mobilization Type Myofascial Release,Sustained Pressure Intensity/Depth Superficial Body Position Hooklying Transverse Perineum Body Location Leonard Superficial/deep transverse perineal ms Mobilization Type Myofascial Release,Sustained Pressure Body Position Hooklying Perineal Node Body Location Perineal node: (in/ouside & outside mob) Mobilization Type Myofascial Release,Sustained Pressure Body Position Hooklying Self-Care/Home Management Treatment Education Patient Education Home Exercise Program Other Education Discussed POC and for pt to seek further visits from provider if she feels further therapy is needed. Recommended further visits for weaning of pt from rehab to self care. Suggested once pt has stopped , that she seek PT if bulging persists. Activities Self-Care/Home Management Activities Issued & reviewed HEP: ABdominal core power - resisted ex for Roll in/out with feet on/off wall and trunk rot. PT-OP-T Assessment and Plan Start: 05/29/22 18:13 Freq: Status: Active Protocol: Document 08/07/22 11:19 LRN (Rec: 08/07/22 12:31 LRN [id number]) Physical Therapy Assessment Goals Four Impairment Tenderness at the External PF. Impairment Tenderness at Ischiocavernosus , Perineal node and Superficial/deep transverse perineal ms. Short Term Goal (STG) Elimate tenderness at the Ischiocavernosus region. 08/07/22: No tenderness after STM STG Duration 07/17/21 progressing 1/27/23 Polisher Numeral Goal (LTG) Elimnate tenderness at the Perineal node and Superficial/ deep transverse perineal ms. 07/31/22: Lessening of tenderness. 08/07/22: Tenderness at Perineal node & R transverse penineal ms LTG Duration 08/21/22 progressing Three Impairment Decreased ability to ex due to cystocele. Short Term Goal (STG) Pt will be educated in proper breathing patterns for return to low level ex's at her gym. 06/09/22: Briefly discussed use of breathing with her gym exercises. STG Duration 06/12/22 (06/22/22: MET GOAL) Senior Care Goal (LTG) Return to Crossfit in a modified capacity. 08/07/22: Pt reporting return to crossfit 1-2x/week with modifications and yoga 1x/week . LTG Duration 08/21/22 (08/07/22: MET GOAL) Two Impairment Cystocele, grade 2. Impairment Heavy feeling and bulge at least 1x/day. Short Term Goal (STG) Pt will be able to have a bowel movement when constipated without onset of bulging or feeling of heaviness. 06/15/22: Pt reports less strain with use of breathing with BM's. 07/24/22: Notes heaviness during menstrual cycle. 07/31/22: No bulging/ heaviness with constipation when off menstrual cycle. 08/07/22: 50% feeling bulge with BM when constipated. 5% or less notice of bulge in vagina on a daily basis. STG Duration 07/17/21 (07/31/22: MET GOAL). Senior Care Goal (LTG) No bulging or heaviness feeling with coughing and when walking. 06/22/22: Bulge felt when more constipated. 08/07/22: Not felt with walking. Noticed movement of bulge with coughing, but after coughing no lingering feeling of bulging. LTG Duration 08/21/22 progressing 08/07/22 One Impairment Pt lacks appropriate self care HEP Short Term Goal (STG) Pt will be educated in proper body mechanics and ADLs with proper breathing patterns to minimize the feeling of bulging in the vagina. 06/09/22: Discussed use of proper breathing to minimize valsalva maneuver when having a BM, and effects on PF during mechanics of breathing, and when doing PF strengthening ex 's. 06/22/22: See self care for pt education today. STG Duration 06/12/22 (06/22/22: MET GOAL) Senior Care Goal (LTG) Pt will be independent in a self care HEP of PF strengthening ex's to minimize cystocele onset. 06/09/22: I/S in HEP: LE roll in/outs with deep breathing. 06/15/22: HEP: TA w/DR support, LE neural/hamstring and L>R Piriformis/Lateral Hip stretch. 07/24/22: HEP: LE roll in/out w/PF contraction f/b 1 rep rest. 08/07/22: HEP: TA/roll in- outs with feet on wall and for Trunk Rot. LTG Duration 08/21/22 progressed 08/07/22 Progress Towards Goals Progress Comments Goal #3 MET. Goal # 4, decreased tenderness . Goal #1, HEP progressed. Assessment Summary Assessment Pt had no c/o pain in the R Ischiocavernosus and perineal node and transverse penineal ms after STM/MFR. Pt has returned to cross fit ex with modifications to avoid a feeling of bulge in the vaginal region. Pt DR appears closed, but mild doming noted with abdominal exercise; therefore further core strengthening needed. Physical Therapy Plan Frequency and Duration Frequency of Treatment 1x/Week Plan of Care Start Date 06/01/22 Plan of Care End Date 08/21/22 Next Visit Focus/Plan Next Note Type Treatment Note Next Visit Plan Assess response to STM for tenderness at Ischiocavernosus and at perineal node/L transverse perineum and cont STM if needed. New POC needed in 2 visits on 08/21/22. Check self care: stretch to trunk rotators. STM: abdomen/abdominal cavity- MFR: Ischiocavernosus and Superficial/deep transverse perineal ms. Progress PF & core (mid weakness) strengthening, ( lifting education). 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 HEP: Strengthen: Core (Mild weakness), L hip flex & R hip ext. Strengthen Superficial PF muscles anteriorly > posteriorly and Deep PF muscles posterior> anteriorly.
--- NOTE | 2022-08-14 12:17 | PT.OTN ---
Current Diagnoses Urethrocele (08/14/22) Other complications of the puerperium, not elsewhere classified (08/14/22) Physical Therapy Treatment Note PT-OP-A Visit Information Start: 05/29/22 18:13 Freq: Status: Active Protocol: Document 08/14/22 11:22 LRN (Rec: 08/14/22 12:13 LRN [id number]) Out-Patient Physical Therapy Visit Information Visit Information Visit Type Treatment Note Visit Start Time : Visit Stop Time 12:00 Total Visit Minutes 38 Visit Number 8 Evaluation Information Evaluation Date 06/01/22 Precautions Precautions None. PT-OP-B Current Condition Start: 05/29/22 18:13 Freq: Status: Active Protocol: Document 06/01/22 11:25 LRN (Rec: 06/01/22 12:39 LRN [id number]) Current Condition History of Current Condition Onset Date Childbirth of son 03/27/22. Current Complaints Bulge in vagina felt intermittently. History of Current Condition 3-4 wks post- pt reports feeling a bulge in the shower in her vaginal region. Went in for 6th week visit on 05/04, said she didn't see anything on pelvic exam, but with cough that she may have a slight anterior bulge. Got a squatty potty and if constipated has a bulge that she can feel, or when really dehydrated has a feeling of something falling out. Bulge with with cough. Feels a bulge in vagina and between vagina and rectum on the outside. Has stuck her finger in her vagina and has felt her bulge. Notices the heavy feeling and bulge at least 1x/ day. Had constipation during but no bulging and heaviness in vagina. Sometimes feels like a tightness in the urethra or clitoris (someting pulling on it), like when the catheter was removed. Prior Treatments and Tests None Future Testing and Treatments Planned None Developmental History Developmental History First , gave vaginal to a healthy boy (7# 11 ounces) on 03/27/22, boy. Had 1st degree tear anteriorly with no stitches. States the MD thought her tear had healed at her last check up. Has tenderness in the area. Stopped 3 weeks ago. Treatment Goals Patient/Caregiver Goals Pt goals: Return to Crossfit No bulging or heaviness feeling with coughing and when constipated and when walking. 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 Baseline Function- Recreation/Hobbies Crossfit workouts 2-3x/week and yoga 1x/wk. Current Functional Impairments (Reported) Functional Limitations- ADL's Not able to do Crossfit. Feels bulge with coughing and when constipated and when walking. Heavy feeling and bulge at least 1x/day. Functional Limitations- Work/School Return to work is planned after the new year. Functional Limitations- Recreation/ Resumed yoga. Hobbies Personal Factors Other Personal Factors That May Effect Mother of ~2 month old . Therapy/Recovery PT-OP-C Subjective Start: 05/29/22 18:13 Freq: Status: Active Protocol: Document 08/14/22 11:22 LRN (Rec: 08/14/22 12:13 LRN [id number]) OP-PT Subjective Patient Comments Patient Comments Had the stomach flu on Mon and had period of period. Was feeling heaviness T-TH and did yoga and it was really helpful. Now has mild pressure on the PF. Was tender at the sit bones afterwards and has noticed more of a release and is not as tight with happy baby pose stretch. Less PF tightness noted after therapy. PT-OP-I Pelvic Floor Start: 05/29/22 18:13 Freq: Status: Active Protocol: Document 06/01/22 11:25 LRN (Rec: 06/01/22 12:39 LRN [id number]) Pelvic Floor Assessment Urine Pelvic Floor Surgery No Urinary Symptoms Falling Out Feeling/Heavy Other Urinary Symptoms NO urinary leakage. Bowel Bowel Surgery No Bowel Symptoms Constipation Other Bowel Symptoms constipated 1x/week. Bowel Movement Frequency daily [place] Stool Chart Comments Bowels range 2-3 and with metamucil stool is type 6. When constipated type Pelvic Clock Pelvic Clock 6-9 Atrophy Pelvic Clock Other Tenderness at Pelvic Clock 6. Prolapse Cystocele Grade 2 Perineal Descent Resting Absent Bearing Present Contraction Ability Voluntary Contraction Moderate Manual Muscle Testing Left 2 Manual Muscle Testing Right 2 Manual Muscle Testing Anterior 2 Manual Muscle Testing Posterior 2 Muscle Endurance (Seconds) 8 Number of Quick Contractions In 10 10 Seconds Comments Pelvic Floor Comments Long Holds: Posterior PF, no lift felt, anteriorly bulge felt but lift noted wth contraction; therefore slightly weaker posterior than anterior PF. Endurance: weakens in contraction after ~ 8 secs. Quick Flicks: Weak on R side (5-6 of PF clock), no sphincter contraction felt in posterior PF. Externally: Tenderness of Perineal node and Superficial and deep transverse perineal ms. Tender at Ischiocavernosus near clitoris towards vagina region. PT-OP-J Posture/Palpation/Skin Start: 05/29/22 18:13 Freq: Status: Active Protocol: Document 06/15/22 09:57 LRN (Rec: 06/15/22 17:57 LRN [id number]) Palpation Assessment Location Abdomen Palpation Location DR Palpation Details 2 above umbilicus - Closed 1 above umbilicus - 2.5 finger widths. 1 below umbilicus - 2.5 shallow finger widths. 2 below umbilicus - 1.5 shallow finger width. 3 below umbilicus - Closed. PT-OP-K Range of Motion Start: 05/29/22 18:13 Freq: Status: Active Protocol: Document 06/01/22 11:25 LRN (Rec: 06/01/22 12:39 LRN [id number]) Lumbar Spine Range of Motion Lumbar Spine Active Degrees Testing Position Standing Flexion 90 Extension 15 Lateral Flexion Left 10 Lateral Flexion Right 10 ROM Limitations Soft Tissue Tightness Comments Hip Flex: 90 deg's flexion with 50 deg's hip flexion. Hip Ext 15 deg's extension with 15 deg's hip extension. Hip Goniometric Range of Motion Hip Right Passive Testing Position Supine Straight Leg Raise 80 Internal Rotation 40 External Rotation 60 Left Passive Testing Position Supine Straight Leg Raise 75 Internal Rotation 30 External Rotation 60 PT-OP-M Strength Start: 05/29/22 18:13 Freq: Status: Active Protocol: Document 06/01/22 11:25 LRN (Rec: 06/01/22 12:39 LRN [id number]) Trunk Strength Trunk Manual Muscle Testing Core Stabilization Mild loss of core stability with MMT, most with L hip flexand R hip ext. Hip Strength Hip Manual Muscle Testing Right Extension (S1) 4+ Good+ Comments Generally 5/5 except as indicated above. Left Flexion (L2) 4+ Good+ Comments Generally 5/5 except as indicated above. PT-OP-Q Treatments Start: 05/29/22 18:13 Freq: Status: Active Protocol: Document 08/14/22 11:22 LRN (Rec: 08/14/22 12:13 LRN [id number]) Manual Therapy Treatment Soft Tissue Mobilization Ischiocavernosus Body Location Leonard Ischiocavernosus Mobilization Type Myofascial Release,Sustained Pressure Intensity/Depth Superficial Body Position Hooklying Abdomen Body Location Cephalad lift of abdomen, Distraction and rotation uterus/bladder/SI region Mobilization Type Myofascial Release Comments L rot bladder region with upper area stabilized and tissue distraction of area. Trunk Rotators Body Location Leonard Trunk Rotators Mobilization Type Myofascial Release,Strumming Intensity/Depth Moderate Body Position Hooklying Transverse Perineum Body Location Leonard Superficial/deep transverse perineal ms Mobilization Type Myofascial Release,Sustained Pressure Body Position Hooklying PT-OP-T Assessment and Plan Start: 05/29/22 18:13 Freq: Status: Active Protocol: Document 08/14/22 11:22 LRN (Rec: 08/14/22 12:13 LRN [id number]) Physical Therapy Assessment Goals Four Impairment Tenderness at the External PF. Impairment Tenderness at Ischiocavernosus , Perineal node and Superficial/deep transverse perineal ms. Short Term Goal (STG) Elimate tenderness at the Ischiocavernosus region. 08/07/22: No tenderness after STM STG Duration 07/17/21 progressing 08/07/22 Manager Books Goal (LTG) Eliminate tenderness at the Perineal node and Superficial/ deep transverse perineal ms. 07/31/22: Lessening of tenderness. 08/07/22: Tenderness at Perineal node & R transverse penineal ms LTG Duration 08/21/22 progressing Three Impairment Decreased ability to ex due to cystocele. Short Term Goal (STG) Pt will be educated in proper breathing patterns for return to low level ex's at her gym. 06/09/22: Briefly discussed use of breathing with her gym exercises. STG Duration 06/12/22 (06/22/22: MET GOAL) Manager Books Goal (LTG) Return to Crossfit in a modified capacity. 08/07/22: Pt reporting return to crossfit 1-2x/week with modifications and yoga 1x/week . LTG Duration 08/21/22 (08/07/22: MET GOAL) Two Impairment Cystocele, grade 2. Impairment Heavy feeling and bulge at least 1x/day. Short Term Goal (STG) Pt will be able to have a bowel movement when constipated without onset of bulging or feeling of heaviness. 06/15/22: Pt reports less strain with use of breathing with BM's. 07/24/22: Notes heaviness during menstrual cycle. 07/31/22: No bulging/ heaviness with constipation when off menstrual cycle. 08/07/22: 50% feeling bulge with BM when constipated. 5% or less notice of bulge in vagina on a daily basis. STG Duration 07/17/21 (07/31/22: MET GOAL). Usp Goal (LTG) No bulging or heaviness feeling with coughing and when walking. 06/22/22: Bulge felt when more constipated. 08/07/22: Not felt with walking. Noticed movement of bulge with coughing, but after coughing no lingering feeling of bulging. LTG Duration 08/21/22 progressing 08/07/22 One Impairment Pt lacks appropriate self care HEP Short Term Goal (STG) Pt will be educated in proper body mechanics and ADLs with proper breathing patterns to minimize the feeling of bulging in the vagina. 06/09/22: Discussed use of proper breathing to minimize valsalva maneuver when having a BM, and effects on PF during mechanics of breathing, and when doing PF strengthening ex 's. 06/22/22: See self care for pt education today. STG Duration 06/12/22 (06/22/22: MET GOAL) Manager Books Goal (LTG) Pt will be independent in a self care HEP of PF strengthening ex's to minimize cystocele onset. 06/09/22: I/S in HEP: LE roll in/outs with deep breathing. 06/15/22: HEP: TA w/DR support, LE neural/hamstring and L>R Piriformis/Lateral Hip stretch. 07/24/22: HEP: LE roll in/out w/PF contraction f/b 1 rep rest. 08/07/22: HEP: TA/roll in- outs with feet on wall and for Trunk Rot. LTG Duration 08/21/22 progressed 08/07/22 Assessment Summary Assessment Release of PF muscles resulted in less tightness of PF and no palpable pain of perineum per palp in vaginal canal. Externally + release of Ischiocavernosus bilaterally near perineal node. Pt is ready to try return to nighttime activities with lessening of PF pain. Physical Therapy Plan Frequency and Duration Frequency of Treatment 1x/Week Plan of Care Start Date 06/01/22 Plan of Care End Date 08/21/22 Next Visit Focus/Plan Next Note Type Progress Note Next Visit Plan New POC needed after next visit, by 08/21/22. Assess if pt has tried intercourse and the response to STM for tenderness at Ischiocavernosus & PF (assess progress toward goal #4) Cont STM if needed. Check self care: stretch to trunk rotators. Progress PF & core (mid weakness) strengthening, ( lifting education). Ex (same as HEP): Core stab to protect DR; L hip flex & R hip ext, strengthen superficial PF muscles (on wedge) anteriorly > posteriorly and her deep PF muscles ice seller> anter. HEP: Strengthen: Core (Mild weakness), L hip flex & R hip ext. Strengthen Superficial PF muscles anteriorly > posteriorly and Deep PF muscles posterior> anteriorly.
--- NOTE | 2022-08-21 16:45 | PT.OTN ---
Current Diagnoses Urethrocele (08/21/22) Other complications of the puerperium, not elsewhere classified (08/21/22) Physical Therapy Treatment Note PT-OP-A Visit Information Start: 05/29/22 18:13 Freq: Status: Active Protocol: Document 08/21/22 11:24 LRN (Rec: 08/21/22 12:35 LRN [id number]) Out-Patient Physical Therapy Visit Information Visit Information Visit Type Progress Note Visit Start Time 11:24 Visit Stop Time 12:04 Total Visit Minutes 40 Visit Number 9 Evaluation Information Evaluation Date 06/01/22 Precautions Precautions None. PT-OP-B Current Condition Start: 05/29/22 18:13 Freq: Status: Active Protocol: Document 06/01/22 11:25 LRN (Rec: 06/01/22 12:39 LRN [id number]) Current Condition History of Current Condition Onset Date Childbirth of son 03/27/22. Current Complaints Bulge in vagina felt intermittently. History of Current Condition 3-4 wks post- pt reports feeling a bulge in the shower in her vaginal region. Went in for 6th week visit on 05/04, said she didn't see anything on pelvic exam, but with cough that she may have a slight anterior bulge. Got a squatty potty and if constipated has a bulge that she can feel, or when really dehydrated has a feeling of something falling out. Bulge with with cough. Feels a bulge in vagina and between vagina and rectum on the outside. Has stuck her finger in her vagina and has felt her bulge. Notices the heavy feeling and bulge at least 1x/ day. Had constipation during but no bulging and heaviness in vagina. Sometimes feels like a tightness in the urethra or clitoris (someting pulling on it), like when the catheter was removed. Prior Treatments and Tests None Future Testing and Treatments Planned None Developmental History Developmental History First , gave vaginal to a healthy boy (7# 11 ounces) on 03/27/22, boy. Had 1st degree tear anteriorly with no stitches. States the MD thought her tear had healed at her last check up. Has tenderness in the area. Stopped 3 weeks ago. Treatment Goals Patient/Caregiver Goals Pt goals: Return to Crossfit No bulging or heaviness feeling with coughing and when constipated and when walking. 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 Baseline Function- Recreation/Hobbies Crossfit workouts 2-3x/week and yoga 1x/wk. Current Functional Impairments (Reported) Functional Limitations- ADL's Not able to do Crossfit. Feels bulge with coughing and when constipated and when walking. Heavy feeling and bulge at least 1x/day. Functional Limitations- Work/School Return to work is planned after the new year. Functional Limitations- Recreation/ Resumed yoga. Hobbies Personal Factors Other Personal Factors That May Effect Mother of ~2 month old . Therapy/Recovery PT-OP-C Subjective Start: 05/29/22 18:13 Freq: Status: Active Protocol: Document 08/21/22 11:24 LRN (Rec: 08/21/22 12:35 LRN [id number]) OP-PT Subjective Patient Comments Patient Comments Did Crossfit on Wed and felt good. Was doing squats holding 15# bar and all felt good. No feeling of heaviness with exercise. PT-OP-I Pelvic Floor Start: 05/29/22 18:13 Freq: Status: Active Protocol: Document 06/01/22 11:25 LRN (Rec: 06/01/22 12:39 LRN [id number]) Pelvic Floor Assessment Urine Pelvic Floor Surgery No Urinary Symptoms Falling Out Feeling/Heavy Other Urinary Symptoms NO urinary leakage. Bowel Bowel Surgery No Bowel Symptoms Constipation Other Bowel Symptoms constipated 1x/week. Bowel Movement Frequency daily [place] Stool Chart Comments Bowels range 2-3 and with metamucil stool is type 6. When constipated type Pelvic Clock Pelvic Clock 6-9 Atrophy Pelvic Clock Other Tenderness at Pelvic Clock 6. Prolapse Cystocele Grade 2 Perineal Descent Resting Absent Bearing Present Contraction Ability Voluntary Contraction Moderate Manual Muscle Testing Left 2 Manual Muscle Testing Right 2 Manual Muscle Testing Anterior 2 Manual Muscle Testing Posterior 2 Muscle Endurance (Seconds) 8 Number of Quick Contractions In 10 10 Seconds Comments Pelvic Floor Comments Long Holds: Posterior PF, no lift felt, anteriorly bulge felt but lift noted wth contraction; therefore slightly weaker posterior than anterior PF. Endurance: weakens in contraction after ~ 8 secs. Quick Flicks: Weak on R side (5-6 of PF clock), no sphincter contraction felt in posterior PF. Externally: Tenderness of Perineal node and Superficial and deep transverse perineal ms. Tender at Ischiocavernosus near clitoris towards vagina region. PT-OP-J Posture/Palpation/Skin Start: 05/29/22 18:13 Freq: Status: Active Protocol: Document 08/21/22 11:24 LRN (Rec: 08/21/22 12:35 LRN [id number]) Palpation Assessment Location R hip AD's Palpation Location R hip Adductors Palpation Findings Soft Tissue Tightness PT-OP-K Range of Motion Start: 05/29/22 18:13 Freq: Status: Active Protocol: Document 06/01/22 11:25 LRN (Rec: 06/01/22 12:39 LRN [id number]) Lumbar Spine Range of Motion Lumbar Spine Active Degrees Testing Position Standing Flexion 90 Extension 15 Lateral Flexion Left 10 Lateral Flexion Right 10 ROM Limitations Soft Tissue Tightness Comments Hip Flex: 90 deg's flexion with 50 deg's hip flexion. Hip Ext 15 deg's extension with 15 deg's hip extension. Hip Goniometric Range of Motion Hip Right Passive Testing Position Supine Straight Leg Raise 80 Internal Rotation 40 External Rotation 60 Left Passive Testing Position Supine Straight Leg Raise 75 Internal Rotation 30 External Rotation 60 PT-OP-M Strength Start: 05/29/22 18:13 Freq: Status: Active Protocol: Document 06/01/22 11:25 LRN (Rec: 06/01/22 12:39 LRN [id number]) Trunk Strength Trunk Manual Muscle Testing Core Stabilization Mild loss of core stability with MMT, most with L hip flexand R hip ext. Hip Strength Hip Manual Muscle Testing Right Extension (S1) 4+ Good+ Comments Generally 5/5 except as indicated above. Left Flexion (L2) 4+ Good+ Comments Generally 5/5 except as indicated above. PT-OP-Q Treatments Start: 05/29/22 18:13 Freq: Status: Active Protocol: Document 08/21/22 11:24 LRN (Rec: 08/21/22 12:35 LRN [id number]) Therapeutic Exercises Supine Exercises Happy Baby Pose Supine Exercise Name Happy Baby Pose Reps/Minutes 2' Manual Therapy Treatment Soft Tissue Mobilization Hip AD's Body Location R hip Adductors Mobilization Type Sustained Pressure Intensity/Depth Moderate Body Position Supine Comments Good release, but one area remained tight. Ischiocavernosus Body Location Leonard Ischiocavernosus Mobilization Type Myofascial Release,Sustained Pressure Intensity/Depth Superficial Body Position Hooklying Trunk Rotators Body Location Leonard Trunk Rotators Mobilization Type Myofascial Release,Strumming Intensity/Depth Moderate Body Position Hooklying Transverse Perineum Body Location R Superficial/deep transverse perineal ms Mobilization Type Myofascial Release,Sustained Pressure Body Position Hooklying Perineal Node Body Location Perineal node: (in[place]ouside & outside mob) Mobilization Type Myofascial Release,Sustained Pressure Body Position Hooklying Self-Care/Home Management Treatment Education Patient Education Pain Management Other Education Pt education in methods to reduce ms tone for relaxation phase after PF contractions. I/S pt in use of deep breathing, sounds, atmosphere adjustment - calming, imagery, and discussed mood ring use. Educated pt in pre-intercourse activity to relax pt and prepare perineum for activity. Discussed lubrication before intercourse. Activities Self-Care/Home Management Activities Recommended pt try educated modifications in prep of intercourse and to see if pt ready. PT-OP-T Assessment and Plan Start: 05/29/22 18:13 Freq: Status: Active Protocol: Document 08/21/22 11:24 LRN (Rec: 08/21/22 12:35 LRN [id number]) Physical Therapy Assessment Rehab Potential Rehabilitation Potential Excellent Evaluation Complexity Number of Personal Factors/Comorbidities 1-2 Number of Body Systems Impaired 4 or More Clinical Presentation at Evaluation Evolving Impairments Impairments Activity Tolerance,Pain,ROM, Soft Tissue Mobility,Strength Goals Four Impairment Tenderness at the External PF. Impairment Tenderness at Ischiocavernosus , Perineal node and Superficial/deep transverse perineal ms. Short Term Goal (STG) [place]imate tenderness at the Ischiocavernosus region. 08/07/22: No tenderness after STM. 08/21/22: Mild tenderness of PF at 6-9 & 3-4 of the PF clock, and perineal node and R transverse perineum. STG Duration 07/17/21 progressing 08/21/22 Shelter Goal (LTG) Eliminate tenderness at the Perineal node and Superficial/ deep transverse perineal ms. 07/31/22: Lessening of tenderness. 08/07/22: Tenderness at Perineal node & R transverse penineal ms. 08/21/22: Tender at R transverse perineal ms. LTG Duration 08/21/22 progressing Three Impairment Decreased ability to ex due to cystocele. Short Term Goal (STG) Pt will be educated in proper breathing patterns for return to low level ex's at her gym. 06/09/22: Briefly discussed use of breathing with her gym exercises. STG Duration 06/12/22 (06/22/22: MET GOAL) Shelter Goal (LTG) Return to Crossfit in a modified capacity. 08/07/22: Pt reporting return to crossfit 1-2x/week with modifications and yoga 1x/week . LTG Duration 08/21/22 (08/07/22: MET GOAL) Two Impairment Cystocele, grade 2. Impairment Heavy feeling and bulge at least 1x/day. Short Term Goal (STG) Pt will be able to have a bowel movement when constipated without onset of bulging or feeling of heaviness. 06/15/22: Pt reports less strain with use of breathing with BM's. 07/24/22: Notes heaviness during menstrual cycle. 07/31/22: No bulging/ heaviness with constipation when off menstrual cycle. 08/07/22: 50% feeling bulge with BM when constipated. 5% or less notice of bulge in vagina on a daily basis. STG Duration 07/17/21 (07/31/22: MET GOAL). Shelter Goal (LTG) No bulging or heaviness feeling with coughing and when walking. 06/22/22: Bulge felt when more constipated. 08/07/22: Not felt with walking. Noticed movement of bulge with coughing, but after coughing no lingering feeling of bulging. 08/21/22: No bulging with walking or supine coughing. LTG Duration 08/21/22 (08/21/22: MET GOAL) One Impairment Pt lacks appropriate self care HEP Short Term Goal (STG) Pt will be educated in proper body mechanics and ADLs with proper breathing patterns to minimize the feeling of bulging in the vagina. 06/09/22: Discussed use of proper breathing to minimize valsalva maneuver when having a BM, and effects on PF during mechanics of breathing, and when doing PF strengthening ex 's. 06/22/22: See self care for pt education today. STG Duration 06/12/22 (06/22/22: MET GOAL) Aquatic Director Goal (LTG) Pt will be independent in a self care HEP of PF strengthening ex's to minimize cystocele onset. 06/09/22: I/S in HEP: LE roll in/outs with deep breathing. 06/15/22: HEP: TA w/DR support, LE neural/hamstring and L>R Piriformis/Lateral Hip stretch. 07/24/22: HEP: LE roll in/out w/PF contraction f/b 1 rep rest. 08/07/22: HEP: TA/roll in- outs with feet on wall and for Trunk Rot. LTG Duration 08/21/22 progressed 08/07/22 Assessment Summary Assessment Pt has tenderness of PF Clock on R: 6-9 O'Clock and L: 3-4 O 'Clock. Easy release of PF internally. Externally at Perineal node and at 6-8 O' Clock release was fair. Pt R Ischial Tub appeared mildly outflared. Minimal bulge seen in supine with cough. Her R hip AD's appear tight compared to L side; therefore further manual stretching would be beneficial. Pt has not tried intercourse with her spouse, but will attempt this coming week since she has more confidence that it will not be painful. The pt will benefit from continue physical therapy for another 2-4 weeks to achieve the above stated goals. Physical Therapy Plan Frequency and Duration Frequency of Treatment 1x/Week Plan of Care Start Date 08/21/22 Plan of Care End Date 09/20/22 Therapeutic Interventions Therapeutic Interventions Home Exercise Program,Joint Mobilizations,Neuromuscular Re -education,Patient/Caregiver Education,Self-Care/Home Management,Soft Tissue Mobilization,Taping, Therapeutic Activities, Therapeutic Exercises Modalities Cold Pack/Ice Massage Next Visit Focus/Plan Next Note Type Treatment Note Next Visit Plan Assess response to intercoure. Assess reponse to STM for tenderness at Ischiocavernosus & PF (assess progress toward goal #4), Cont STM - monitor for outflare of ischial tub in supine. Check hip AD's for tightness. Progress PF & core (mid weakness) strengthening, ( lifting education). Ex (same as HEP): Core stab to protect DR; L hip flex & R hip ext, strengthen superficial PF muscles (on wedge) anteriorly > posteriorly and her deep PF muscles brake repairer> anter. HEP: Strengthen: Core (Mild weakness), L hip flex & R hip ext. Strengthen Superficial PF muscles anteriorly > posteriorly and Deep PF muscles posterior> anteriorly.
--- NOTE | 2022-08-21 16:47 | PT.OPPOC ---
Physical, Occupational & Speech Therapy At [facility] Current Diagnoses Urethrocele (08/21/22) Other complications of the puerperium, not elsewhere classified (08/21/22) Visit Care Team Role Provider Type Mary Mann MD Attending Provider Non-Staff Family Provider Primary Care Provider Referring Provider Specialty: Family Practice Address: [address] [place] [address], [facility] Email: Plan Of Care PT-OP-T Assessment and Plan Start: 05/29/22 18:13 Freq: Status: Active Protocol: Document 08/21/22 11:24 LRN (Rec: 08/21/22 12:35 LRN [id number]) Physical Therapy Assessment Rehab Potential Rehabilitation Potential Excellent Evaluation Complexity Number of Personal Factors/Comorbidities 1-2 Number of Body Systems Impaired 4 or More Clinical Presentation at Evaluation Evolving Impairments Impairments Activity Tolerance,Pain,ROM, Soft Tissue Mobility,Strength Goals Four Impairment Tenderness at the External PF. Impairment Tenderness at Ischiocavernosus , Perineal node and Superficial/deep transverse perineal ms. Short Term Goal (STG) [place] tenderness at the Ischiocavernosus region. 08/07/22: No tenderness after STM. 08/21/22: Mild tenderness of PF at 6-9 & 3-4 of the PF clock, and perineal node and R transverse perineum. STG Duration 09/04/22 progressing Half-Way Goal (LTG) Eliminate tenderness at the Perineal node and Superficial/ deep transverse perineal ms. 07/31/22: Lessening of tenderness. 08/07/22: Tenderness at Perineal node & R transverse penineal ms. 08/21/22: Tender at R transverse perineal ms. LTG Duration 09/20/22 progressing Three Impairment Decreased ability to ex due to cystocele. Short Term Goal (STG) Pt will be educated in proper breathing patterns for return to low level ex's at her gym. 06/09/22: Briefly discussed use of breathing with her gym exercises. STG Duration 06/12/22 (06/22/22: MET GOAL) Half-Way Goal (LTG) Return to Crossfit in a modified capacity. 08/07/22: Pt reporting return to crossfit 1-2x/week with modifications and yoga 1x/week . LTG Duration 08/21/22 (08/07/22: MET GOAL) Two Impairment Cystocele, grade 2. Impairment Heavy feeling and bulge at least 1x/day. Short Term Goal (STG) Pt will be able to have a bowel movement when constipated without onset of bulging or feeling of heaviness. 06/15/22: Pt reports less strain with use of breathing with BM's. 07/24/22: Notes heaviness during menstrual cycle. 07/31/22: No bulging/ heaviness with constipation when off menstrual cycle. 08/07/22: 50% feeling bulge with BM when constipated. 5% or less notice of bulge in vagina on a daily basis. STG Duration 07/17/21 (07/31/22: MET GOAL). Workday Senior Associate Goal (LTG) No bulging or heaviness feeling with coughing and when walking. 06/22/22: Bulge felt when more constipated. 08/07/22: Not felt with walking. Noticed movement of bulge with coughing, but after coughing no lingering feeling of bulging. 08/21/22: No bulging with walking or supine coughing. LTG Duration 08/21/22 (08/21/22: MET GOAL) One Impairment Pt lacks appropriate self care HEP Short Term Goal (STG) Pt will be educated in proper body mechanics and ADLs with proper breathing patterns to minimize the feeling of bulging in the vagina. 06/09/22: Discussed use of proper breathing to minimize valsalva maneuver when having a BM, and effects on PF during mechanics of breathing, and when doing PF strengthening ex 's. 06/22/22: See self care for pt education today. STG Duration 06/12/22 (06/22/22: MET GOAL) Workday Senior Associate Goal (LTG) Pt will be independent in a self care HEP of PF strengthening ex's to minimize cystocele onset. 06/09/22: I/S in HEP: LE roll in/outs with deep breathing. 06/15/22: HEP: TA w/DR support, LE neural/hamstring and L>R Piriformis/Lateral Hip stretch. 07/24/22: HEP: LE roll in/out w/PF contraction f/b 1 rep rest. 08/07/22: HEP: TA/roll in- outs with feet on wall and for Trunk Rot. LTG Duration 09/20/22 progressed 08/07/22 Assessment Summary Assessment Pt has tenderness of PF Clock on R: 6-9 O'Clock and L: 3-4 O 'Clock. Easy release of PF internally. Externally at Perineal node and at 6-8 O' Clock release was fair. Pt R Ischial Tub appeared mildly outflared. Minimal bulge seen in supine with cough. Her R hip AD's appear tight compared to L side; therefore further manual stretching would be beneficial. Pt has not tried intercourse with her spouse, but will attempt this coming week since she has more confidence that it will not be painful. The pt will benefit from continue physical therapy for another 2-4 weeks to achieve the above stated goals. Physical Therapy Plan Frequency and Duration Frequency of Treatment 1x/Week Plan of Care Start Date 08/21/22 Plan of Care End Date 09/20/22 Therapeutic Interventions Therapeutic Interventions Home Exercise Program,Joint Mobilizations,Neuromuscular Re -education,Patient/Caregiver Education,Self-Care/Home Management,Soft Tissue Mobilization,Taping, Therapeutic Activities, Therapeutic Exercises Modalities Cold Pack/Ice Massage Next Visit Focus/Plan Next Note Type Treatment Note Next Visit Plan Assess response to intercoure. Assess reponse to STM for tenderness at Ischiocavernosus & PF (assess progress toward goal #4), Cont STM - monitor for outflare of ischial tub in supine. Check hip AD's for tightness. Progress PF & core (mid weakness) strengthening, ( lifting education). Ex (same as HEP): Core stab to protect DR; L hip flex & R hip ext, strengthen superficial PF muscles (on wedge) anteriorly > posteriorly and her deep PF muscles distribution agent> anter. HEP: Strengthen: Core (Mild weakness), L hip flex & R hip ext. Strengthen Superficial PF muscles anteriorly > posteriorly and Deep PF muscles posterior> anteriorly. Plan of Care Dates Plan of Care Start Date 08/21/22 Plan of Care End Date 09/20/22 Electronically Signed by: Maribel Lucas, PT 08/22/22 8014 If you are in agreement with this Plan of Care, please return a signed and dated copy. I have reviewed this Plan of Care and certify that the skilled therapy services above are required to meet the patient?s needs. Physician Signature Date Printed Name and Credentials Clinical Instructor Signature Printed Name and Credentials
--- NOTE | 2022-08-28 18:18 | PT.OTN ---
Current Diagnoses Urethrocele (08/28/22) Other complications of the puerperium, not elsewhere classified (08/28/22) Physical Therapy Treatment Note PT-OP-A Visit Information Start: 05/29/22 18:13 Freq: Status: Active Protocol: Document 08/28/22 11:19 LRN (Rec: 08/28/22 12:18 LRN [id number]) Out-Patient Physical Therapy Visit Information Visit Information Visit Type Treatment Note Visit Start Time 11:19 Visit Stop Time 11:57 Total Visit Minutes 38 Visit Number 10 Evaluation Information Evaluation Date 06/01/22 Precautions Precautions None. PT-OP-B Current Condition Start: 05/29/22 18:13 Freq: Status: Active Protocol: Document 06/01/22 11:25 LRN (Rec: 06/01/22 12:39 LRN [id number]) Current Condition History of Current Condition Onset Date Childbirth of son 03/27/22. Current Complaints Bulge in vagina felt intermittently. History of Current Condition 3-4 wks post- pt reports feeling a bulge in the shower in her vaginal region. Went in for 6th week visit on 05/04, said she didn't see anything on pelvic exam, but with cough that she may have a slight anterior bulge. Got a squatty potty and if constipated has a bulge that she can feel, or when really dehydrated has a feeling of something falling out. Bulge with with cough. Feels a bulge in vagina and between vagina and rectum on the outside. Has stuck her finger in her vagina and has felt her bulge. Notices the heavy feeling and bulge at least 1x/ day. Had constipation during but no bulging and heaviness in vagina. Sometimes feels like a tightness in the urethra or clitoris (someting pulling on it), like when the catheter was removed. Prior Treatments and Tests None Future Testing and Treatments Planned None Developmental History Developmental History First , gave vaginal to a healthy boy (7# 11 ounces) on 03/27/22, boy. Had 1st degree tear anteriorly with no stitches. States the MD thought her tear had healed at her last check up. Has tenderness in the area. Stopped 3 weeks ago. Treatment Goals Patient/Caregiver Goals Pt goals: Return to Crossfit No bulging or heaviness feeling with coughing and when constipated and when walking. Prior Functional Status Baseline Function- ADL's Independent Baseline Function- Mobility Independent Baseline Function- Work/School FT in [employer] for [employer] in [place]. Baseline Function- Recreation/Hobbies Crossfit workouts 2-3x/week and yoga 1x/wk. Current Functional Impairments (Reported) Functional Limitations- ADL's Not able to do Crossfit. Feels bulge with coughing and when constipated and when walking. Heavy feeling and bulge at least 1x/day. Functional Limitations- Work/School Return to work is planned after the new year. Functional Limitations- Recreation/ Resumed yoga. Hobbies Personal Factors Other Personal Factors That May Effect Mother of ~2 month old . Therapy/Recovery PT-OP-C Subjective Start: 05/29/22 18:13 Freq: Status: Active Protocol: Document 08/28/22 11:19 LRN (Rec: 08/28/22 12:18 LRN [id number]) OP-PT Subjective Patient Comments Patient Comments Crossfit, felt pressure/pain in lower abs, and once had bowel movement it went away. Pt states had intercourse with spouse and took it slow and easy and was able to participate without pain. PT-OP-I Pelvic Floor Start: 05/29/22 18:13 Freq: Status: Active Protocol: Document 08/28/22 11:19 LRN (Rec: 08/28/22 12:56 LRN [id number]) Pelvic Floor Assessment Comments Pelvic Floor Comments Clitoral nod visible with PF contraction. PT-OP-J Posture/Palpation/Skin Start: 05/29/22 18:13 Freq: Status: Active Protocol: Document 08/21/22 11:24 LRN (Rec: 08/21/22 12:35 LRN [id number]) Palpation Assessment Location R hip AD's Palpation Location R hip Adductors Palpation Findings Soft Tissue Tightness PT-OP-K Range of Motion Start: 05/29/22 18:13 Freq: Status: Active Protocol: Document 06/01/22 11:25 LRN (Rec: 06/01/22 12:39 LRN [id number]) Lumbar Spine Range of Motion Lumbar Spine Active Degrees Testing Position Standing Flexion 90 Extension 15 Lateral Flexion Left 10 Lateral Flexion Right 10 ROM Limitations Soft Tissue Tightness Comments Hip Flex: 90 deg's flexion with 50 deg's hip flexion. Hip Ext 15 deg's extension with 15 deg's hip extension. Hip Goniometric Range of Motion Hip Right Passive Testing Position Supine Straight Leg Raise 80 Internal Rotation 40 External Rotation 60 Left Passive Testing Position Supine Straight Leg Raise 75 Internal Rotation 30 External Rotation 60 PT-OP-M Strength Start: 05/29/22 18:13 Freq: Status: Active Protocol: Document 06/01/22 11:25 LRN (Rec: 06/01/22 12:39 LRN [id number]) Trunk Strength Trunk Manual Muscle Testing Core Stabilization Mild loss of core stability with MMT, most with L hip flexand R hip ext. Hip Strength Hip Manual Muscle Testing Right Extension (S1) 4+ Good+ Comments Generally 5/5 except as indicated above. Left Flexion (L2) 4+ Good+ Comments Generally 5/5 except as indicated above. PT-OP-Q Treatments Start: 05/29/22 18:13 Freq: Status: Active Protocol: Document 08/28/22 11:19 LRN (Rec: 08/28/22 12:18 LRN [id number]) Manual Therapy Treatment Soft Tissue Mobilization Levator Ani Body Location Levator Ani muscle bilaterally Mobilization Type Sustained Pressure Intensity/Depth Superficial Body Position Hooklying Comments Release provided. Hip AD's Body Location R hip Adductors Mobilization Type Sustained Pressure Intensity/Depth Moderate Body Position Supine Comments Good release, but one area remained tight. Ischiocavernosus Body Location Leonard Ischiocavernosus Mobilization Type Myofascial Release,Sustained Pressure Intensity/Depth Superficial Body Position Hooklying Self-Care/Home Management Treatment Education Other Education Discussed pt maintenance program of: bowel health, fluid management, stretches for hips (hip Adductor tightness) & Happy Baby Pose if PF tight, strengthening: TA focus and PF ex with hips elevated, discussed modified position for coughing ( standing hamstring stretch- leaning forward, and light cough). Discussed need for proper body mechanics as baby grows and setting of pelvis pre/post birthing if 2nd is attempted. PT-OP-T Assessment and Plan Start: 05/29/22 18:13 Freq: Status: Active Protocol: Document 08/28/22 11:19 LRN (Rec: 08/28/22 12:18 LRN [id number]) Physical Therapy Assessment Goals Four Impairment Tenderness at the External PF. Impairment Tenderness at Ischiocavernosus , Perineal node and Superficial/deep transverse perineal ms. Short Term Goal (STG) Elimate tenderness at the Ischiocavernosus region. 08/07/22: No tenderness after STM. 08/21/22: Mild tenderness of PF at 6-9 & 3-4 of the PF clock, and perineal node and R transverse perineum. 08/28/22: Tender at vaginal entry at 6 O'Clock, no tenderness at Ishchiocavernosus. STG Duration 09/04/22 (08/28/22: MET GOAL) Custodial Goal (LTG) Eliminate tenderness at the Perineal node and Superficial/ deep transverse perineal ms. 07/31/22: Lessening of tenderness. 08/07/22: Tenderness at Perineal node & R transverse penineal ms. 08/21/22: Tender at R transverse perineal ms. 08/28/22: No tenderness at transverse perineal ms bilaterally LTG Duration 09/20/22 09/04/22 (: MET GOAL) Three Impairment Decreased ability to ex due to cystocele. Short Term Goal (STG) Pt will be educated in proper breathing patterns for return to low level ex's at her gym. 06/09/22: Briefly discussed use of breathing with her gym exercises. STG Duration 06/12/22 (06/22/22: MET GOAL) Custodial Goal (LTG) Return to Crossfit in a modified capacity. 08/07/22: Pt reporting return to crossfit 1-2x/week with modifications and yoga 1x/week . LTG Duration 08/21/22 (08/07/22: MET GOAL) Two Impairment Cystocele, grade 2. Impairment Heavy feeling and bulge at least 1x/day. Short Term Goal (STG) Pt will be able to have a bowel movement when constipated without onset of bulging or feeling of heaviness. 06/15/22: Pt reports less strain with use of breathing with BM's. 07/24/22: Notes heaviness during menstrual cycle. 07/31/22: No bulging/ heaviness with constipation when off menstrual cycle. 08/07/22: 50% feeling bulge with BM when constipated. 5% or less notice of bulge in vagina on a daily basis. STG Duration 07/17/21 (07/31/22: MET GOAL). Custodial Goal (LTG) No bulging or heaviness feeling with coughing and when walking. 06/22/22: Bulge felt when more constipated. 08/07/22: Not felt with walking. Noticed movement of bulge with coughing, but after coughing no lingering feeling of bulging. 08/21/22: No bulging with walking or supine coughing. LTG Duration 08/21/22 (08/21/22: MET GOAL) One Impairment Pt lacks appropriate self care HEP Short Term Goal (STG) Pt will be educated in proper body mechanics and ADLs with proper breathing patterns to minimize the feeling of bulging in the vagina. 06/09/22: Discussed use of proper breathing to minimize valsalva maneuver when having a BM, and effects on PF during mechanics of breathing, and when doing PF strengthening ex 's. 06/22/22: See self care for pt education today. STG Duration 06/12/22 (06/22/22: MET GOAL) Custodial Goal (LTG) Pt will be independent in a self care HEP of PF strengthening ex's to minimize cystocele onset. 06/09/22: I/S in HEP: LE roll in/outs with deep breathing. 06/15/22: HEP: TA w/DR support, LE neural/hamstring and L>R Piriformis/Lateral Hip stretch. 07/24/22: HEP: LE roll in/out w/PF contraction f/b 1 rep rest. 08/07/22: HEP: TA/roll in- outs with feet on wall and for Trunk Rot. 08/28/22: Reviewed maintenance program. LTG Duration 09/20/22 (08/21/22: MET GOAL) Assessment Summary Assessment Pt has met all her goals. She had tenderness at 6 O'Clock at vaginal opening, but redness noted may be reason for pain; therefore further medical assessment is recommended. There is tightness of her hip ADD's, but hip rotational mobility is good. She did have tenderness internally at the bilateral Ishiococcygeus, Iliococcygeus ms, but release of these muscles was fairly quick; therefore if she is able to keep up with her nighttime activities, then it is most likely that these muscles will stretch enough to eliminate her pain with intercourse. She attends with report of no pain with intercourse last week. Physical Therapy Plan Frequency and Duration Frequency of Treatment 1x/Week Plan of Care Start Date 08/21/22 Plan of Care End Date 09/20/22 Discharge Physical Therapy Discharge Reasons Goals Met Discharge Comments Pt external PF tissues are dry and there is redness in the vaginal opening tissued. Pt was referred to return to health care provider to discuss assessment for her dry tissues and redness at vaginal entry that is possibly causing the pain at 6 O'Clock of her PF clock.
== END 2022-08-31 16:20 | disposition home or self-care (01) ==
LOC: PHYS 11:15
PROVIDERS: Absent Provider Family Medicine; Family Provider Family Medicine; PCP Family Medicine; Referring Provider Family Medicine; Visit Provider Family Medicine
DX: O90.89 Other complications of the puerperium, not elsewhere classified (principal); N81.0 Urethrocele
CPT/HCPCS: 97110; 97140; 97162; 97535